=== PATIENT | male | born 1960 | race Caucasian/White ===

== ENCOUNTER 2018-02-05 17:07 | Inpatient (IN) ==
--- NOTE | 2018-02-05 17:56 | Emergency Department Note ---
Disposition Clinical Impression: Drug overdose, Hypercapnic respiratory failure Altered mental status Qualifiers: Altered mental status type: unspecified Qualified Code(s): R41.82 - Altered mental status, unspecified COPD (chronic obstructive pulmonary disease) Qualifiers: COPD type: COPD with acute exacerbation Qualified Code(s): J44.1 - Chronic obstructive pulmonary disease with (acute) exacerbation Sepsis Qualifiers: Sepsis type: sepsis due to unspecified organism Qualified Code(s): A41.9 - Sepsis, unspecified organism Pneumonia Qualifiers: Pneumonia type: due to unspecified organism Laterality: right Lung location: lower lobe of lung Qualified Code(s): J18.1 - Lobar pneumonia, unspecified organism Disposition: Admitted As Inpatient Altered Mental Status HPI - General Chief Complaint: ED Altered Mental Status Stated Complaint: AMS Time Seen by Provider: 02/05/18 17:15 Source: EMS Limitations: altered mental status Nursing Notes Reviewed: Yes Vital Signs Reviewed: Yes - Related Data Home Medications Medication Instructions Recorded Confirmed Albuterol Sulfate [Albuterol 2 puff IH Q4H PRN 05/14/16 05/14/16 Inhaler] Divalproex (24 HR) [Depakote ER 500 mg PO BID 05/14/16 05/14/16 (24 HR)] Ipratropium/Albuterol Neb [Duoneb] 3 ml IH Q4H PRN 05/14/16 05/14/16 Ipratropium/Albuterol Neb [Duoneb] 3 ml IH TID 05/14/16 05/14/16 Melatonin 3 mg PO HS PRN 05/14/16 05/14/16 Omeprazole [PriLOSEC] 20 mg PO DAILY 05/14/16 05/14/16 Oxygen 2 l NS AD 05/14/16 05/14/16 Quetiapine Fumarate [Seroquel] 150 mg PO HS 05/14/16 05/14/16 Tamsulosin [Flomax] 0.4 mg PO HS 05/14/16 05/14/16 Trihexyphenidyl [Artane] 2 mg PO 5XD 05/14/16 05/14/16 fluPHENAZine decanoate [Prolixin] 75 mg IM Q2W 05/14/16 05/14/16 Metoprolol Tartrate [Lopressor] 50 mg PO BID 05/16/16 05/16/16 Previous Rx's Medication Instructions Recorded Fluticasone/Salmeterol [Advair 1 each IH BID #1 blst.w.dev 05/17/16 500-50 Diskus] Nicotine Patch [Nicoderm] 21 mg TD DAILY #30 patch.td24 05/17/16 Umeclidinium [place] [Incruse 62.5 mcg IH DAILY #1 blst.w.dev 05/17/16 Ellipta] Amoxicillin/Clavulanate [Augmentin] 875 mg PO BIDWM #10 tablet 05/19/16 GuaiFENesin ER [Mucinex] 600 mg PO BID tbbp.12hr 05/19/16 HYDROcodone/Acet 5/325 mg [[place] 1 tab PO Q4HR PRN #10 tablet 05/19/16 5-325 mg] predniSONE [Prednisone] 10 mg PO QAM #60 tab.ds.pk 05/19/16 Allergies Allergy/AdvReac Type Severity Reaction Status Date / Time bupropion AdvReac Unknown Verified 05/14/16 15:54 codeine AdvReac Unknown Verified 05/14/16 15:54 gabapentin AdvReac Unknown Verified 05/14/16 15:54 haloperidol [From Haldol] AdvReac Unknown Verified 05/14/16 15:54 morphine AdvReac Unknown Verified 05/14/16 15:54 tramadol AdvReac Unknown Verified 05/14/16 15:54 Varenicline [From Chantix] AdvReac Unknown Verified 05/14/16 15:54 Past Medical History - Past Medical History Medical history: Reports: arthritis, COPD, GERD, hepatitis, hyperlipidemia, hypertension, other Surgical history: Reports: orthopedic, other (Foot surgery. Jaw surgery. Neck surgery.), other Psychiatric history: Reports: anxiety, depression - Social History Smoking Status: Current every day smoker Smokeless Tobacco Status: No Alcohol use: Reports: none Drug use: Reports: none Physical Exam - General Limitations: altered mental status General appearance: appears intoxicated Course Vital Signs Temperature 98.6 F 02/05/18 17:18 Pulse Rate 93 02/05/18 17:18 Respiratory Rate 12 02/05/18 17:18 Blood Pressure 151/95 02/05/18 17:18 O2 Sat by Pulse Oximetry 94 02/05/18 17:18 Temperature 98.6 F 02/05/18 17:18 Pulse Rate 93 02/05/18 21:33 Respiratory Rate 17 02/05/18 21:33 Blood Pressure 169/98 02/05/18 21:33 O2 Sat by Pulse Oximetry 98 02/05/18 21:33 Oxygen Delivery Oxygen Delivery Bipap Altered Mental Status - Lab Data Result diagrams: 02/05/18 17:51 02/05/18 17:51 Lab Results 02/05/18 02/05/18 02/05/18 Range/Units 17:51 17:51 17:51 WBC 17.4 H (4.3-11.1) K/mcL RBC 4.12 L (4.19-5.50) M/mcL Hgb 12.4 L (12.9-16.9) g/dL Hct 40.1 (37.5-50.1) % MCV 97.3 (83.0-100.0) fL MCH 30.1 (28.0-33.3) pg MCHC 30.9 L (31.6-35.5) g/dL RDW 14.7 H (11.5-14.5) % Plt Count 362 (140-400) K/mcL MPV 9.3 L (9.4-12.4) fL Immature Gran % 0.7 (0-4) % Seg Neutrophils % 91.0 % Lymphocytes % 3.8 % Monocytes % 4.0 % Eosinophils % 0.2 % Basophils % 0.3 % Neutrophils # 15.9 H (1.6-8.9) K/mcL Lymphocytes # 0.7 (0.6-4.6) K/mcL Monocytes # 0.7 (0.0-1.3) K/mcL Eosinophils # 0.0 (0.0-0.6) K/mcL Basophils # 0.1 (0.0-0.2) K/mcL PT 10.0 (9.4-12.1) Seconds INR 0.9 APTT 32.5 (26.0-36.0) Seconds VBG pH (7.32-7.42) pH Units VBG pCO2 (41-51) mmHg VBG pO2 (25-50) mmHg VBG HCO3 (21-27) mEq/L Sodium 133 L (136-145) mEq/L Potassium 4.1 (3.5-5.1) mEq/L Chloride 95 L (98-107) mEq/L Carbon Dioxide 34 H (23-29) mEq/L BUN 13 (6-20) mg/dL Creatinine 0.84 (0.70-1.30) mg/dL Est GFR ( Amer) > 60 (> 60) Est GFR (Non-Af Amer) > 60 (> 60) BUN/Creatinine Ratio 15 (6-26) Glucose 146 H (70-105) mg/dL Calculated Osmolality 279 L (280-300) Lactic Acid (0.5-2.2) mmol/L Calcium 8.9 (8.6-10.3) mg/dL Total Bilirubin 0.2 L (0.3-1.0) mg/dL Direct Bilirubin 0.1 (0.0-0.2) mg/dL Indirect Bilirubin 0.1 (0.0-1.2) mg/dL AST 12 L (13-39) Units/L ALT 8 (7-52) Units/L Alkaline Phosphatase 74 (34-104) Units/L Troponin I < 0.03 (< 0.04) ng/mL Serum Total Protein 6.8 (6.4-8.9) g/dL Albumin 4.3 (3.5-5.7) g/dL Globulin 2.5 (2.4-3.5) g/dL Albumin/Globulin Ratio 1.7 (1.1-2.2) Urine Color (Yellow) Urine Clarity (Clear) Urine pH (5.0-8.0) pH Units Ur Specific [place] (1.010-1.025) Urine Protein (Neg-Trace) mg/dL Urine Glucose (UA) (Normal) mg/dL Urine Ketones (Negative) mg/dL Urine Blood (Negative) Urine Nitrite (Negative) Urine Bilirubin (Negative) Urine Urobilinogen (Normal) mg/dL Ur Leukocyte Esterase (Negative) Urine Microscopic RBC (0-3) per hpf Ur Squamous Epith Cells (None-Few) per lpf Ur Culture Indicated? (NO) Salicylates (15.0-30.0) mg/dL Urine Opiates Screen (Mclvjr=691) ng/mL Acetaminophen (10-20) mcg/mL Ur Barbiturates Screen (Frzjay=102) ng/mL Ur Phencyclidine Scrn (Cutoff=25) ng/mL Ur Amphetamines Screen (Wjxwbw=6375) ng/mL U Benzodiazepines Scrn (Hitrsp=797) ng/mL Urine Cocaine Screen (Cutoff= 300) ng/mL U Marijuana (THC) Screen (Cutoff = 50) ng/mL Ur Drug Screen Interp Ethyl Alcohol < 10 (Less than 10) mg/dL Person Notif of Crit 02/05/18 02/05/18 02/05/18 Range/Units 17:51 19:52 19:52 WBC (4.3-11.1) K/mcL RBC (4.19-5.50) M/mcL Hgb (12.9-16.9) g/dL Hct (37.5-50.1) % MCV (83.0-100.0) fL MCH (28.0-33.3) pg MCHC (31.6-35.5) g/dL RDW (11.5-14.5) % Plt Count (140-400) K/mcL MPV (9.4-12.4) fL Immature Gran % (0-4) % Seg Neutrophils % % Lymphocytes % % Monocytes % % Eosinophils % % Basophils % % Neutrophils # (1.6-8.9) K/mcL Lymphocytes # (0.6-4.6) K/mcL Monocytes # (0.0-1.3) K/mcL Eosinophils # (0.0-0.6) K/mcL Basophils # (0.0-0.2) K/mcL PT (9.4-12.1) Seconds INR APTT (26.0-36.0) Seconds VBG pH (7.32-7.42) pH Units VBG pCO2 (41-51) mmHg VBG pO2 (25-50) mmHg VBG HCO3 (21-27) mEq/L Sodium (136-145) mEq/L Potassium (3.5-5.1) mEq/L Chloride (98-107) mEq/L Carbon Dioxide (23-29) mEq/L BUN (6-20) mg/dL Creatinine (0.70-1.30) mg/dL Est GFR ( Amer) (> 60) Est GFR (Non-Af Amer) (> 60) BUN/Creatinine Ratio (6-26) Glucose (70-105) mg/dL Calculated Osmolality (280-300) Lactic Acid (0.5-2.2) mmol/L Calcium (8.6-10.3) mg/dL Total Bilirubin (0.3-1.0) mg/dL Direct Bilirubin (0.0-0.2) mg/dL Indirect Bilirubin (0.0-1.2) mg/dL AST (13-39) Units/L ALT (7-52) Units/L Alkaline Phosphatase (34-104) Units/L Troponin I (< 0.04) ng/mL Serum Total Protein (6.4-8.9) g/dL Albumin (3.5-5.7) g/dL Globulin (2.4-3.5) g/dL Albumin/Globulin Ratio (1.1-2.2) Urine Color Yellow (Yellow) Urine Clarity Clear (Clear) Urine pH 6.0 (5.0-8.0) pH Units Ur Specific [place] 1.015 (1.010-1.025) Urine Protein 30 H (Neg-Trace) mg/dL Urine Glucose (UA) Normal (Normal) mg/dL Urine Ketones Negative (Negative) mg/dL Urine Blood Negative (Negative) Urine Nitrite Negative (Negative) Urine Bilirubin Negative (Negative) Urine Urobilinogen Normal (Normal) mg/dL Ur Leukocyte Esterase Negative (Negative) Urine Microscopic RBC 0-3 (0-3) per hpf Ur Squamous Epith Cells Few (None-Few) per lpf Ur Culture Indicated? NO (NO) Salicylates < 2.5 L (15.0-30.0) mg/dL Urine Opiates Screen Negative (Tfxpgh=996) ng/mL Acetaminophen < 10 L (10-20) mcg/mL Ur Barbiturates Screen Negative (Slunpc=372) ng/mL Ur Phencyclidine Scrn Negative (Cutoff=25) ng/mL Ur Amphetamines Screen Negative (Jvupnj=4144) ng/mL U Benzodiazepines Scrn Negative (Sssrhj=971) ng/mL Urine Cocaine Screen Negative (Cutoff= 300) ng/mL U Marijuana (THC) Screen Negative (Cutoff = 50) ng/mL Ur Drug Screen Interp See Below Ethyl Alcohol (Less than 10) mg/dL Person Notif of Crit 02/05/18 02/05/18 Range/Units 20:04 20:17 WBC (4.3-11.1) K/mcL RBC (4.19-5.50) M/mcL Hgb (12.9-16.9) g/dL Hct (37.5-50.1) % MCV (83.0-100.0) fL MCH (28.0-33.3) pg MCHC (31.6-35.5) g/dL RDW (11.5-14.5) % Plt Count (140-400) K/mcL MPV (9.4-12.4) fL Immature Gran % (0-4) % Seg Neutrophils % % Lymphocytes % % Monocytes % % Eosinophils % % Basophils % % Neutrophils # (1.6-8.9) K/mcL Lymphocytes # (0.6-4.6) K/mcL Monocytes # (0.0-1.3) K/mcL Eosinophils # (0.0-0.6) K/mcL Basophils # (0.0-0.2) K/mcL PT (9.4-12.1) Seconds INR APTT (26.0-36.0) Seconds VBG pH 7.26 L (7.32-7.42) pH Units VBG pCO2 84 H* (41-51) mmHg VBG pO2 57 H (25-50) mmHg VBG HCO3 37 H (21-27) mEq/L Sodium (136-145) mEq/L Potassium (3.5-5.1) mEq/L Chloride (98-107) mEq/L Carbon Dioxide (23-29) mEq/L BUN (6-20) mg/dL Creatinine (0.70-1.30) mg/dL Est GFR ( Amer) (> 60) Est GFR (Non-Af Amer) (> 60) BUN/Creatinine Ratio (6-26) Glucose (70-105) mg/dL Calculated Osmolality (280-300) Lactic Acid 0.8 (0.5-2.2) mmol/L Calcium (8.6-10.3) mg/dL Total Bilirubin (0.3-1.0) mg/dL Direct Bilirubin (0.0-0.2) mg/dL Indirect Bilirubin (0.0-1.2) mg/dL AST (13-39) Units/L ALT (7-52) Units/L Alkaline Phosphatase (34-104) Units/L Troponin I (< 0.04) ng/mL Serum Total Protein (6.4-8.9) g/dL Albumin (3.5-5.7) g/dL Globulin (2.4-3.5) g/dL Albumin/Globulin Ratio (1.1-2.2) Urine Color (Yellow) Urine Clarity (Clear) Urine pH (5.0-8.0) pH Units Ur Specific [place] (1.010-1.025) Urine Protein (Neg-Trace) mg/dL Urine Glucose (UA) (Normal) mg/dL Urine Ketones (Negative) mg/dL Urine Blood (Negative) Urine Nitrite (Negative) Urine Bilirubin (Negative) Urine Urobilinogen (Normal) mg/dL Ur Leukocyte Esterase (Negative) Urine Microscopic RBC (0-3) per hpf Ur Squamous Epith Cells (None-Few) per lpf Ur Culture Indicated? (NO) Salicylates (15.0-30.0) mg/dL Urine Opiates Screen (Wmkyvp=551) ng/mL Acetaminophen (10-20) mcg/mL Ur Barbiturates Screen (Kjprkt=778) ng/mL Ur Phencyclidine Scrn (Cutoff=25) ng/mL Ur Amphetamines Screen (Qcjpih=7399) ng/mL U Benzodiazepines Scrn (Kkmnwi=816) ng/mL Urine Cocaine Screen (Cutoff= 300) ng/mL U Marijuana (THC) Screen (Cutoff = 50) ng/mL Ur Drug Screen Interp Ethyl Alcohol (Less than 10) mg/dL Person Notif of Laz [facility] TPA Checklist - LKW: 3-4.5 hrs Add. Warnings/Precautions Patient/family understanding: The patient/family members have been counseled and understood the risk, benefit , and alternatives of treatment. Attestation Statement - Attestation Attestation: Patient was seen with the resident physician. Independent history and physical exam was taken. I discussed the case with the resident and agree with the findings and plan as documented in the resident's note. Resident physician Dr. Ray. Patient brought in by EMS after the patient been found by mother slumped over in the chair and with decreased responsiveness. Patient aroused EMS verbal stimuli. The patient is talking to us but does have some tangential thoughts and not all of his answers make complete sense. The patient had proximally 30 oxycodone missing. A Tylenol level was sent. Further workup of altered mental status showed hypercapnic respiratory failure. CT was negative for intracranial injury. Patient also has an elevated white count and concern for pneumonia. Patient is a COPD patient on 3 L of home oxygen with no increased oxygen requirement at this time. The patient did have an episode of decreased responsiveness which she did respond to Narcan within the emergency department. We did order cultures as well as a VBG to help further delineate underlying etiology. This time hypercapnia is a factor. Patient was placed on BiPAP. Steroids, breathing treatments, antibiotics given. Patient has been stable in the emergency department and his fine for continued BiPAP on the floor. Patient with occasionally noncoherent thoughts and answers questions Lungs decreased breath sounds bilaterally Heart regular rate and rhythm Abdomen soft nontender to palpation No evidence of trauma No significant pitting edema
[2018-02-05 18:03] LABS: Basophils # 0.1 K/mcL (0.0-0.2); Basophils % 0.3 %; Eosinophils % 0.2 %; Hematocrit 40.1 % (37.5-50.1); Hemoglobin 12.4 g/dL (12.9-16.9); Immature Granulocytes % 0.7 % (0-4); Lymphocytes # 0.7 K/mcL (0.6-4.6); Lymphocytes % 3.8 %; Mean Corpuscular HGB Conc 30.9 g/dL (31.6-35.5); Mean Corpuscular Hemoglobin 30.1 pg (28.0-33.3); Mean Corpuscular Volume 97.3 fL (83.0-100.0); Mean Platelet Volume 9.3 fL (9.4-12.4); Monocytes # 0.7 K/mcL (0.0-1.3); Neutrophils # 15.9 K/mcL (1.6-8.9); Platelet Count 362 K/mcL (140-400); Red Blood Count 4.12 M/mcL (4.19-5.50); Red Cell Distribution Width 14.7 % (11.5-14.5)
[2018-02-05 18:10] LABS: INR 0.9
[2018-02-05 18:12] LABS: Activated Partial Thrombo Time 32.5 Seconds (26.0-36.0)
[2018-02-05 18:21] LABS: Acetaminophen < 10 mcg/mL (10-20); Salicylate < 2.5 mg/dL (15.0-30.0)
[2018-02-05 18:24] LABS: Alanine Aminotransferase 8 Units/L (7-52); Albumin 4.3 g/dL (3.5-5.7); Albumin/Globulin Ratio 1.7 (1.1-2.2); Alkaline Phosphatase 74 Units/L (34-104); Aspartate Amino Transferase 12 Units/L (13-39); BUN/Creatinine Ratio 15 (6-26); Bilirubin,Direct 0.1 mg/dL (0.0-0.2); Bilirubin,Indirect 0.1 mg/dL (0.0-1.2); Bilirubin,Total 0.2 mg/dL (0.3-1.0); Blood Urea Nitrogen 13 mg/dL (6-20); Calcium 8.9 mg/dL (8.6-10.3); Carbon Dioxide 34 mEq/L (23-29); Chloride 95 mEq/L (98-107); Ethanol < 10 mg/dL (Less than 10); Globulin 2.5 g/dL (2.4-3.5); Glucose 146 mg/dL (70-105); Osmolality,Calculated 279 (280-300); Potassium 4.1 mEq/L (3.5-5.1); Sodium 133 mEq/L (136-145); Total Protein 6.8 g/dL (6.4-8.9); Troponin I < 0.03 ng/mL (< 0.04); eGFR For Non-African Americans > 60 (> 60)
--- NOTE | 2018-02-05 18:46 | Emergency Department Note ---
Disposition Clinical Impression: Drug overdose, Hypercapnic respiratory failure Altered mental status Qualifiers: Altered mental status type: unspecified Qualified Code(s): R41.82 - Altered mental status, unspecified COPD (chronic obstructive pulmonary disease) Qualifiers: COPD type: emphysema Emphysema type: unspecified Qualified Code(s): J43.9 - Emphysema, unspecified Sepsis Qualifiers: Sepsis type: sepsis due to unspecified organism Qualified Code(s): A41.9 - Sepsis, unspecified organism Pneumonia Qualifiers: Pneumonia type: due to unspecified organism Laterality: right Lung location: lower lobe of lung Qualified Code(s): J18.1 - Lobar pneumonia, unspecified organism Disposition: Admitted As Inpatient General Adult HPI - General Chief complaint: ED Altered Mental Status Stated complaint: AMS Time Seen by Provider: 02/05/18 17:15 Source: EMS Mode of arrival: EMS Limitations: altered mental status Nursing Notes Reviewed: Yes Vital Signs Reviewed: Yes - History of Present Illness HPI Narrative: Patient is a 57-year-old male with past medical history of hypertension, COPD on 3L O2 per NC at home, chronic pain on oxycodone, shortness of breath started this presenting via EMS due to altered mental status. Report given by EMS. The patient's mom called EMS as she found the patient slumped over and unresponsive in his chair. She was unable to wake him up. When EMS arrived patient was able to be arousable. No Narcan was given. It was noted that there is a oxycodone pill bottle next to the chair. It was noted that the patient had approximately 6-12 pills still left. The prescription was filled on 02/02/2018. He had 56 pills in there. It is estimated he took approximately 30 pills in 3 days. He states today he followed the prescription and took 2 pills. He states he did not overdose and did not intentionally harm himself. He is an unreliable historian as unable to tell us why they are pills missing from the bottle. Recent is currently alert and satting 94% on 3 L of oxygen per nasal cannula. He denies chest pain, shortness of breath, dysuria, cough, headaches. He states he did not fall or hit his head. Pain Scale: 0 - Related Data Home Medications Medication Instructions Recorded Confirmed Albuterol Sulfate [Albuterol 2 puff IH Q4H PRN 05/14/16 05/14/16 Inhaler] Divalproex (24 HR) [Depakote ER 500 mg PO BID 05/14/16 05/14/16 (24 HR)] Ipratropium/Albuterol Neb [Duoneb] 3 ml IH Q4H PRN 05/14/16 05/14/16 Ipratropium/Albuterol Neb [Duoneb] 3 ml IH TID 05/14/16 05/14/16 Melatonin 3 mg PO HS PRN 05/14/16 05/14/16 Omeprazole [PriLOSEC] 20 mg PO DAILY 05/14/16 05/14/16 Oxygen 2 l NS AD 05/14/16 05/14/16 Quetiapine Fumarate [Seroquel] 150 mg PO HS 05/14/16 05/14/16 Tamsulosin [Flomax] 0.4 mg PO HS 05/14/16 05/14/16 Trihexyphenidyl [Artane] 2 mg PO 5XD 05/14/16 05/14/16 fluPHENAZine decanoate [Prolixin] 75 mg IM Q2W 05/14/16 05/14/16 Metoprolol Tartrate [Lopressor] 50 mg PO BID 05/16/16 05/16/16 Previous Rx's Medication Instructions Recorded Fluticasone/Salmeterol [Advair 1 each IH BID #1 blst.w.dev 05/17/16 500-50 Diskus] Nicotine Patch [Nicoderm] 21 mg TD DAILY #30 patch.td24 05/17/16 Umeclidinium [place] [Incruse 62.5 mcg IH DAILY #1 blst.w.dev 05/17/16 Ellipta] Amoxicillin/Clavulanate [Augmentin] 875 mg PO BIDWM #10 tablet 05/19/16 GuaiFENesin ER [Mucinex] 600 mg PO BID tbbp.12hr 05/19/16 HYDROcodone/Acet 5/325 mg [[place] 1 tab PO Q4HR PRN #10 tablet 05/19/16 5-325 mg] predniSONE [Prednisone] 10 mg PO QAM #60 tab.ds.pk 05/19/16 Allergies Allergy/AdvReac Type Severity Reaction Status Date / Time bupropion AdvReac Unknown Verified 05/14/16 15:54 codeine AdvReac Unknown Verified 05/14/16 15:54 gabapentin AdvReac Unknown Verified 05/14/16 15:54 haloperidol [From Haldol] AdvReac Unknown Verified 05/14/16 15:54 morphine AdvReac Unknown Verified 05/14/16 15:54 tramadol AdvReac Unknown Verified 05/14/16 15:54 Varenicline [From Chantix] AdvReac Unknown Verified 05/14/16 15:54 All systems ED: reviewed and negative except as stated. Review of Systems: As Per HPI Constitutional: Denies: fever, chills Eyes: Denies: vision change ENT ED: Denies: throat pain, congestion Cardiovascular: Denies: chest pain, palpitations Respiratory: Denies: cough, dyspnea Gastrointestinal: Denies: abdominal pain, nausea Genitourinary: Denies: dysuria, hematuria Musculoskeletal: Reports: neck pain. Denies: back pain Integumentary: Denies: rash Neurological: Reports: confusion Allergic/Immunologic: Denies: itchy eyes Past Medical History - Past Medical History Attestation: Yes The following information was validated with the patient. Source: patient Medical history: Reports: arthritis, COPD, GERD, hepatitis, hyperlipidemia, hypertension, other Surgical history: Reports: orthopedic, other (Foot surgery. Jaw surgery. Neck surgery.), other Psychiatric history: Reports: anxiety, depression - Social History Smoking Status: Current every day smoker Smokeless Tobacco Status: No Alcohol use: Reports: none Drug use: Reports: none Physical Exam - General Limitations: altered mental status General appearance: appears intoxicated - Head Head exam: atraumatic, normocephalic - Eye Eye exam: Present: PERRL, EOMI. Absent: scleral icterus - Neck Neck exam: Present: trachea midline. Absent: tenderness - Respiratory Respiratory exam: Present: other (Diminished breath sounds bilaterally but no wheezing or crackles noted.). Absent: respiratory distress, accessory muscle use - Cardiovascular Cardiovascular exam: Present: normal rhythm, tachycardia - Abdominal Exam Abdominal exam: Present: soft, Non-Tender. Absent: distention, guarding - Extremities Exam Extremities exam: Present: full ROM. Absent: tenderness - Neurological Exam Neurological exam: Present: other - Expanded Neurological Exam Patient oriented to: Present: person, place, time Cranial nerves: EOM function (II, III, IV, ): Normal, facial sensation (V): Normal, facial palsy (VII): Normal, spinal accessory function (XI): Normal, tongue deviation (XII): Normal Cerebellar function: finger to nose: Normal, heel to gilbert: Normal Motor strength - LUE: 5/5 Motor strength - RUE: 5/5 Motor strength - LLE: 5/5 Motor strength - RLE: 5/5 Upper motor neuron exam: iman neglect: Absent bilaterally, pronator drift: Absent bilaterally Sensory exam upper extremity: light touch: Normal Sensory exam lower extremity: light touch: Normal - Psychiatric Psychiatric exam: Absent: depressed, homicidal ideation, suicidal ideation - Skin Skin exam: Present: warm, dry. Absent: diaphoresis, pallor Course Vital Signs Temperature 98.6 F 02/05/18 17:18 Pulse Rate 93 02/05/18 17:18 Respiratory Rate 12 02/05/18 17:18 Blood Pressure 151/95 02/05/18 17:18 O2 Sat by Pulse Oximetry 94 02/05/18 17:18 Temperature 98.6 F 02/05/18 17:18 Pulse Rate 93 02/05/18 21:33 Respiratory Rate 17 02/05/18 21:33 Blood Pressure 169/98 02/05/18 21:33 O2 Sat by Pulse Oximetry 98 02/05/18 21:33 Oxygen Delivery Oxygen Delivery Bipap Medical Decision Making - [facility] Narrative Medical decision making narrative: Patient is arousable and able to respond to questions. No gross neurologic deficits on exam. We will obtain altered mental status workup. We will obtain CT head and neck. Check chest x-ray, urinalysis, troponin, EKG, CBC, CMP, PT/ INR, we will also obtain acetaminophen, salicylate, ethanol levels. Concern for significant acetaminophen toxicity if he took a significant amount of oxycodone. Unsure if there is acetaminophen in his prescription. 19:20 Labs reviewed. Patient has leukocytosis with white blood count 17,000. Acetaminophen level, salicylate level, ethanol level is not elevated. Troponin is <0.03. CT head without acute intracranial process. Chest x-ray does show an opacity in the right lower lobe suspicious for pneumonia versus atelectasis. We will treat as pneumonia. He has not had a recent hospitalization. We will give him ceftriaxone and azithromycin. The patient's nurse called me around 19:30. He has been having increased oxygen requirement. His oxygen saturations were decreasing into the 70s and he was placed on a nonrebreather personally half an hour ago. His oxygen saturations improved. He was very sleepy and difficult to arouse. Gave 0.4 mg of Narcan. The patient then responded and is now awake. DuoNeb treatment was ordered and the patient is currently receiving this. Blood cultures, lactate, IV fluids also ordered. This will be obtained prior to starting the IV antibiotics to treat for pneumonia. History of COPD and we will give methylprednisolone as well. Patient will need to be admitted for altered mental status secondary to possible drug overdose versus pneumonia. He will also need further treatment of his pneumonia and COPD exacerbation. Urine drug screen and urinalysis also sent at this time. 20:25 Notified that PCO2 is83.6 called respiratory to start the patient on BiPAP. If patient cannot tolerate Bipap, will consider intubating the patient. Discussed with him the importance of wearing his mask. Discussed with hospitalist, Dr. Bella at 20:50. He will accept the patient. Will also update tabulating machine mechanic about the patient as there are no orth beds and will have to get the patient an inpatient bed. It will be unknown how long the patient will remain down in the ED. Patient is tolerating Bipap upon re- evaluation and arrousable and responds appropriately to questions. - Medical Records Medical records reviewed: Yes I reviewed the patient's medical records. - Lab Data Lab results reviewed: Yes I reviewed the patient's lab results. Result diagrams: 02/05/18 17:51 02/05/18 17:51 Lab Results 02/05/18 02/05/18 02/05/18 Range/Units 17:51 17:51 17:51 WBC 17.4 H (4.3-11.1) K/mcL RBC 4.12 L (4.19-5.50) M/mcL Hgb 12.4 L (12.9-16.9) g/dL Hct 40.1 (37.5-50.1) % MCV 97.3 (83.0-100.0) fL MCH 30.1 (28.0-33.3) pg MCHC 30.9 L (31.6-35.5) g/dL RDW 14.7 H (11.5-14.5) % Plt Count 362 (140-400) K/mcL MPV 9.3 L (9.4-12.4) fL Immature Gran % 0.7 (0-4) % Seg Neutrophils % 91.0 % Lymphocytes % 3.8 % Monocytes % 4.0 % Eosinophils % 0.2 % Basophils % 0.3 % Neutrophils # 15.9 H (1.6-8.9) K/mcL Lymphocytes # 0.7 (0.6-4.6) K/mcL Monocytes # 0.7 (0.0-1.3) K/mcL Eosinophils # 0.0 (0.0-0.6) K/mcL Basophils # 0.1 (0.0-0.2) K/mcL PT 10.0 (9.4-12.1) Seconds INR 0.9 APTT 32.5 (26.0-36.0) Seconds VBG pH (7.32-7.42) pH Units VBG pCO2 (41-51) mmHg VBG pO2 (25-50) mmHg VBG HCO3 (21-27) mEq/L Sodium 133 L (136-145) mEq/L Potassium 4.1 (3.5-5.1) mEq/L Chloride 95 L (98-107) mEq/L Carbon Dioxide 34 H (23-29) mEq/L BUN 13 (6-20) mg/dL Creatinine 0.84 (0.70-1.30) mg/dL Est GFR ( Amer) > 60 (> 60) Est GFR (Non-Af Amer) > 60 (> 60) BUN/Creatinine Ratio 15 (6-26) Glucose 146 H (70-105) mg/dL Calculated Osmolality 279 L (280-300) Lactic Acid (0.5-2.2) mmol/L Calcium 8.9 (8.6-10.3) mg/dL Total Bilirubin 0.2 L (0.3-1.0) mg/dL Direct Bilirubin 0.1 (0.0-0.2) mg/dL Indirect Bilirubin 0.1 (0.0-1.2) mg/dL AST 12 L (13-39) Units/L ALT 8 (7-52) Units/L Alkaline Phosphatase 74 (34-104) Units/L Troponin I < 0.03 (< 0.04) ng/mL Serum Total Protein 6.8 (6.4-8.9) g/dL Albumin 4.3 (3.5-5.7) g/dL Globulin 2.5 (2.4-3.5) g/dL Albumin/Globulin Ratio 1.7 (1.1-2.2) Urine Color (Yellow) Urine Clarity (Clear) Urine pH (5.0-8.0) pH Units Ur Specific [place] (1.010-1.025) Urine Protein (Neg-Trace) mg/dL Urine Glucose (UA) (Normal) mg/dL Urine Ketones (Negative) mg/dL Urine Blood (Negative) Urine Nitrite (Negative) Urine Bilirubin (Negative) Urine Urobilinogen (Normal) mg/dL Ur Leukocyte Esterase (Negative) Urine Microscopic RBC (0-3) per hpf Ur Squamous Epith Cells (None-Few) per lpf Ur Culture Indicated? (NO) Salicylates (15.0-30.0) mg/dL Urine Opiates Screen (Weeelr=312) ng/mL Acetaminophen (10-20) mcg/mL Ur Barbiturates Screen (Bpiukt=452) ng/mL Ur Phencyclidine Scrn (Cutoff=25) ng/mL Ur Amphetamines Screen (Oubtin=8997) ng/mL U Benzodiazepines Scrn (Ldcqzg=929) ng/mL Urine Cocaine Screen (Cutoff= 300) ng/mL U Marijuana (THC) Screen (Cutoff = 50) ng/mL Ur Drug Screen Interp Ethyl Alcohol < 10 (Less than 10) mg/dL Person Notif of Crit 02/05/18 02/05/18 02/05/18 Range/Units 17:51 19:52 19:52 WBC (4.3-11.1) K/mcL RBC (4.19-5.50) M/mcL Hgb (12.9-16.9) g/dL Hct (37.5-50.1) % MCV (83.0-100.0) fL MCH (28.0-33.3) pg MCHC (31.6-35.5) g/dL RDW (11.5-14.5) % Plt Count (140-400) K/mcL MPV (9.4-12.4) fL Immature Gran % (0-4) % Seg Neutrophils % % Lymphocytes % % Monocytes % % Eosinophils % % Basophils % % Neutrophils # (1.6-8.9) K/mcL Lymphocytes # (0.6-4.6) K/mcL Monocytes # (0.0-1.3) K/mcL Eosinophils # (0.0-0.6) K/mcL Basophils # (0.0-0.2) K/mcL PT (9.4-12.1) Seconds INR APTT (26.0-36.0) Seconds VBG pH (7.32-7.42) pH Units VBG pCO2 (41-51) mmHg VBG pO2 (25-50) mmHg VBG HCO3 (21-27) mEq/L Sodium (136-145) mEq/L Potassium (3.5-5.1) mEq/L Chloride (98-107) mEq/L Carbon Dioxide (23-29) mEq/L BUN (6-20) mg/dL Creatinine (0.70-1.30) mg/dL Est GFR ( Amer) (> 60) Est GFR (Non-Af Amer) (> 60) BUN/Creatinine Ratio (6-26) Glucose (70-105) mg/dL Calculated Osmolality (280-300) Lactic Acid (0.5-2.2) mmol/L Calcium (8.6-10.3) mg/dL Total Bilirubin (0.3-1.0) mg/dL Direct Bilirubin (0.0-0.2) mg/dL Indirect Bilirubin (0.0-1.2) mg/dL AST (13-39) Units/L ALT (7-52) Units/L Alkaline Phosphatase (34-104) Units/L Troponin I (< 0.04) ng/mL Serum Total Protein (6.4-8.9) g/dL Albumin (3.5-5.7) g/dL Globulin (2.4-3.5) g/dL Albumin/Globulin Ratio (1.1-2.2) Urine Color Yellow (Yellow) Urine Clarity Clear (Clear) Urine pH 6.0 (5.0-8.0) pH Units Ur Specific [place] 1.015 (1.010-1.025) Urine Protein 30 H (Neg-Trace) mg/dL Urine Glucose (UA) Normal (Normal) mg/dL Urine Ketones Negative (Negative) mg/dL Urine Blood Negative (Negative) Urine Nitrite Negative (Negative) Urine Bilirubin Negative (Negative) Urine Urobilinogen Normal (Normal) mg/dL Ur Leukocyte Esterase Negative (Negative) Urine Microscopic RBC 0-3 (0-3) per hpf Ur Squamous Epith Cells Few (None-Few) per lpf Ur Culture Indicated? NO (NO) Salicylates < 2.5 L (15.0-30.0) mg/dL Urine Opiates Screen Negative (Vgskzh=138) ng/mL Acetaminophen < 10 L (10-20) mcg/mL Ur Barbiturates Screen Negative (Ivnxbo=591) ng/mL Ur Phencyclidine Scrn Negative (Cutoff=25) ng/mL Ur Amphetamines Screen Negative (Yhkyvl=1887) ng/mL U Benzodiazepines Scrn Negative (Kcgfyy=870) ng/mL Urine Cocaine Screen Negative (Cutoff= 300) ng/mL U Marijuana (THC) Screen Negative (Cutoff = 50) ng/mL Ur Drug Screen Interp See Below Ethyl Alcohol (Less than 10) mg/dL Person Notif of Crit 02/05/18 02/05/18 Range/Units 20:04 20:17 WBC (4.3-11.1) K/mcL RBC (4.19-5.50) M/mcL Hgb (12.9-16.9) g/dL Hct (37.5-50.1) % MCV (83.0-100.0) fL MCH (28.0-33.3) pg MCHC (31.6-35.5) g/dL RDW (11.5-14.5) % Plt Count (140-400) K/mcL MPV (9.4-12.4) fL Immature Gran % (0-4) % Seg Neutrophils % % Lymphocytes % % Monocytes % % Eosinophils % % Basophils % % Neutrophils # (1.6-8.9) K/mcL Lymphocytes # (0.6-4.6) K/mcL Monocytes # (0.0-1.3) K/mcL Eosinophils # (0.0-0.6) K/mcL Basophils # (0.0-0.2) K/mcL PT (9.4-12.1) Seconds INR APTT (26.0-36.0) Seconds VBG pH 7.26 L (7.32-7.42) pH Units VBG pCO2 84 H* (41-51) mmHg VBG pO2 57 H (25-50) mmHg VBG HCO3 37 H (21-27) mEq/L Sodium (136-145) mEq/L Potassium (3.5-5.1) mEq/L Chloride (98-107) mEq/L Carbon Dioxide (23-29) mEq/L BUN (6-20) mg/dL Creatinine (0.70-1.30) mg/dL Est GFR ( Amer) (> 60) Est GFR (Non-Af Amer) (> 60) BUN/Creatinine Ratio (6-26) Glucose (70-105) mg/dL Calculated Osmolality (280-300) Lactic Acid 0.8 (0.5-2.2) mmol/L Calcium (8.6-10.3) mg/dL Total Bilirubin (0.3-1.0) mg/dL Direct Bilirubin (0.0-0.2) mg/dL Indirect Bilirubin (0.0-1.2) mg/dL AST (13-39) Units/L ALT (7-52) Units/L Alkaline Phosphatase (34-104) Units/L Troponin I (< 0.04) ng/mL Serum Total Protein (6.4-8.9) g/dL Albumin (3.5-5.7) g/dL Globulin (2.4-3.5) g/dL Albumin/Globulin Ratio (1.1-2.2) Urine Color (Yellow) Urine Clarity (Clear) Urine pH (5.0-8.0) pH Units Ur Specific [place] (1.010-1.025) Urine Protein (Neg-Trace) mg/dL Urine Glucose (UA) (Normal) mg/dL Urine Ketones (Negative) mg/dL Urine Blood (Negative) Urine Nitrite (Negative) Urine Bilirubin (Negative) Urine Urobilinogen (Normal) mg/dL Ur Leukocyte Esterase (Negative) Urine Microscopic RBC (0-3) per hpf Ur Squamous Epith Cells (None-Few) per lpf Ur Culture Indicated? (NO) Salicylates (15.0-30.0) mg/dL Urine Opiates Screen (Vsqvci=350) ng/mL Acetaminophen (10-20) mcg/mL Ur Barbiturates Screen (Cvgeli=038) ng/mL Ur Phencyclidine Scrn (Cutoff=25) ng/mL Ur Amphetamines Screen (Ahsrme=7127) ng/mL U Benzodiazepines Scrn (Nkwxog=476) ng/mL Urine Cocaine Screen (Cutoff= 300) ng/mL U Marijuana (THC) Screen (Cutoff = 50) ng/mL Ur Drug Screen Interp Ethyl Alcohol (Less than 10) mg/dL Person Notif of [facility] - Radiology Data Radiology results reviewed: Yes I reviewed the patient's radiology results. Chest X-Ray 02/05/18 17:34 IMPRESSION: Right lower lobe opacity may represent atelectasis versus pneumonia. D/ / 02/05/2018 18:29:30 Dragan Duggan MD / [email or web address] Interpreting Provider: Dragan Duggan MD
[2018-02-05] MEDS ORDERED: Azithromycin 500 MG in D5% in Water 250 ML IVPB ONE (19:23)
[2018-02-05] MEDS ORDERED: cefTRIAXone 1,000 MG in Water for inj. (sterile) 20 ML 10 ML IVP ONE (19:23)
[2018-02-05] MEDS ORDERED: Naloxone 0.4 MG/ML INJ IVP ONE ×2 (19:25→21:37)
[2018-02-05] MEDS ORDERED: Ipratropium/Albuterol Neb 3 ML IH ONE (19:26)
[2018-02-05] MEDS ORDERED: methylPREDNISolone 125 MG/2 ML VIAL IVP ONE (19:27)
[2018-02-05] MEDS ORDERED: 0.9 % Sodium Chloride 1,000 ML IVC ONE (19:43)
[2018-02-05 20:17] LABS: Bilirubin,Urine Negative (Negative); Blood,Urine Negative (Negative); Clarity,Urine Clear (Clear); Color,Urine Yellow (Yellow); Glucose,Urine (UA) Normal (Normal); Ketones,Urine Negative (Negative); Leukocyte Esterase,Urine Negative (Negative); Nitrite,Urine Negative (Negative); Protein,Urine 30 mg/dL (Neg-Trace); Specific Gravity,Urine 1.015 (1.010-1.025); Urobilinogen,Urine Normal (Normal)
[2018-02-05 20:22] LABS: VBG HCO3 37 mEq/L (21-27); VBG PCO2 84 mmHg (41-51); VBG PH 7.26 pH Units (7.32-7.42); VBG PO2 57 mmHg (25-50)
[2018-02-05 20:26] LABS: RBC,Urine 0-3 per hpf (0-3); Squamous Epithelial Cell,Urine Few per lpf (None-Few)
[2018-02-05 20:28] LABS: Amphetamine Screen,Urine Negative ng/mL (Cutoff=1000); Barbiturate Screen,Urine Negative ng/mL (Cutoff=200); Benzodiazepines Screen,Urine Negative ng/mL (Cutoff=200); Cannabinoid Screen,Urine Negative ng/mL (Cutoff = 50); Cocaine Screen,Urine Negative ng/mL (Cutoff= 300); Opiate Screen,Urine Negative ng/mL (Cutoff=300); Phencyclidine Screen,Urine Negative ng/mL (Cutoff=25)
[2018-02-05] MEDS ORDERED: Naloxone 0.4 MG/ML INJ IVP PRN (21:39)
--- NOTE | 2018-02-05 21:52 | Internal Med History&Physical ---
<Drake Pathak - Last Filed: 02/05/18 21:47> Date of Encounter: 02/05/18 Time of Encounter: 21:47 Internal Medicine - H&P: HPI Chief complaint: Altered mental status Admitted From: Home Plans for Post Hospital Care: Home History of present illness: Mr. Curran is a 57 year old male presents after being found unconscious by his mother. I personally contacted the patient's mother. She reports that this morning he was slow but difficult to arouse but woke up and went outside to smoke a cigarette. After that he went back into [facility] in the afternoon she found him unconscious and difficult to arouse with slow respirations. After that she call 911. EMS reported that patient takes oxycodone and his pill bottle only had 15 pills. Patient mother reports that he had a prescription filled on 02/04/2018 and had a total of 56 pills and she only counted 16 pills. Patient has a history of bipolar disorder and paranoid schizophrenia and is followed by [place] psychiatry. He is on fluphenazine. Unclear when his last dose was given. Upon arrival patient was found to be in acute respiratory failure with hypercapnia and hypoxia. He was placed on BiPAP and given Narcan which she responded to. During my examination patient denied intention to harm self, previous suicide attempts. He denies recent hallucinations, poor sleep. Patient 's mother also stated he has never attempted suicide. She also reported the patient is not depressed or did not have any suicidal ideations. Past Med Surg Social Fam HX - Past Medical History Medical history: arthritis, COPD, GERD, hepatitis, hyperlipidemia, hypertension , other Additional medical history: chronic back & neck pain. Hep C Psychiatric history: anxiety, depression - Past Surgical History Surgical History: orthopedic, other (Foot surgery. Jaw surgery. Neck surgery.) , other Additional surgical history: feet. neck. jaw. back - Social History Smoking Status: Current every day smoker Smokeless Tobacco Status: No Alcohol use: none Drug use: none Internal Medicine - H&P: Meds Albuterol Sulfate [Albuterol Inhaler] 2 puff IH Q4H PRN 05/14/16 [History] Divalproex (24 HR) [Depakote ER (24 HR)] 500 mg PO BID 05/14/16 [History] Ipratropium/Albuterol Neb [Duoneb] 3 ml IH Q4H PRN 05/14/16 [History] Ipratropium/Albuterol Neb [Duoneb] 3 ml IH TID 05/14/16 [History] Melatonin 3 mg PO HS PRN 05/14/16 [History] Omeprazole [PriLOSEC] 20 mg PO DAILY 05/14/16 [History] Oxygen 2 l NS AD 05/14/16 [History] Quetiapine Fumarate [Seroquel] 150 mg PO HS 05/14/16 [History] Tamsulosin [Flomax] 0.4 mg PO HS 05/14/16 [History] Trihexyphenidyl [Artane] 2 mg PO 5XD 05/14/16 [History] fluPHENAZine decanoate [Prolixin] 75 mg IM Q2W 05/14/16 [History] Metoprolol Tartrate [Lopressor] 50 mg PO BID 05/16/16 [History] Fluticasone/Salmeterol [Advair 500-50 Diskus] 1 each IH BID #1 blst.w.dev [Rx] Nicotine Patch [Nicoderm] 21 mg TD DAILY #30 patch.td24 05/17/16 [Rx] Umeclidinium [place] [Incruse Ellipta] 62.5 mcg IH DAILY #1 blst.w.dev 05/17/16 [Rx] Amoxicillin/Clavulanate [Augmentin] 875 mg PO BIDWM #10 tablet 05/19/16 [Rx] GuaiFENesin ER [Mucinex] 600 mg PO BID tbbp.12hr 05/19/16 [Rx] HYDROcodone/Acet 5/325 mg [[place] 5-325 mg] 1 tab PO Q4HR PRN #10 tablet [Rx] predniSONE [Prednisone] 10 mg PO QAM #60 tab.ds.pk 05/19/16 [Rx] 3 Allergy/AdvReac Type Severity Reaction Status Date / Time bupropion AdvReac Unknown Verified 05/14/16 15:54 codeine AdvReac Unknown Verified 05/14/16 15:54 gabapentin AdvReac Unknown Verified 05/14/16 15:54 haloperidol [From Haldol] AdvReac Unknown Verified 05/14/16 15:54 morphine AdvReac Unknown Verified 05/14/16 15:54 tramadol AdvReac Unknown Verified 05/14/16 15:54 Varenicline [From Chantix] AdvReac Unknown Verified 05/14/16 15:54 All Systems PM: A 10-system review of systems was performed and is negative for pertinent findings except as documented above in the HPI. Review of systems: Constitutional: Denies fever, chills HEENT: Denies headache, trauma, blurry vision, eye discharge, ear pain, ear discharge neck pain, sore throat, rhinorrhea Heart: Denies chest pain palpitations, LE edema Lungs: Poor shortness of breath, denies cough, sputum production Abdomen: Denies abdominal pain nausea vomiting diarrhea MSK: Denies back pain, falls, joint pain Kidney: Denies dysuria, hematuria Skin: Denies rash, ulcers Neuro: Denies numbness and tingling Psych: reports axiety and depression - Constitutional Vitals: Temp Pulse Resp BP Pulse Ox 98.6 F 93 17 169/98 98 02/05/18 17:18 02/05/18 21:33 02/05/18 21:33 02/05/18 21:33 02/05/18 21:33 Exam: General: pleasant, without distress, somnolent HEENT: Head atraumatic, normocephalic, EOMI, PERRL, absent ear discharge or trauma, on BIPAP Neck: nontender to palpation, absent lymphadenopathy, Cardiovascualr: Regular rate and rhythm with no murmur, absent gallops or rubs, 1+ pedal edema, radial pulses 2 out of 4 Lungs: Clear to auscultation bilaterally, not in respiratory distress Abdomen: Soft nontender, nondistended positive bowel sounds, absent hepatomegaly Skin: warm and dry, absent rash, absent open wounds and nodules MSK: absent clubbing, cyanosis, joints without swelling Neuro: alert and oriented to self and place Psych: poor insight and judgement, calm Internal Med - H&P Results - Labs CBC & Chem 7: 02/05/18 17:51 02/05/18 17:51 - Assessment and plan (1) Opiate overdose Current Visit: Yes Status: Acute Assessment and plan: patient was found unresponsive with only 15 out of 56 pills left of his oxycodone prescription Patient denies suicidal ideation, suicidal attempt He has a history of schizophrenia and bipolar disorder He reports compliance with his medications Unclear intent of overdose Patient responded to Narcan in the emergency department Patient is still somnolent Plan: Narcan 1, psychiatry consultation, obtain records from [place] psych,pink slip , one on one sitter. Qualifiers: Encounter type: initial encounter Injury intent: undetermined intent Qualified Code(s): T40.604A - Poisoning by unspecified narcotics, undetermined, initial encounter (2) Acute on chronic respiratory failure with hypoxia and hypercapnia Current Visit: Yes Status: Acute Assessment and plan: 2nd to opiate overdose VBG pCo2 is 84 patient is on 3L O2 at home for COPD in ER he desatted to 70s and was difficult to arouse and responded to narcan also RLL opacity on CXR-suspect aspiration pna plan: unasyn, duonebs and bipap (3) Aspiration pneumonia Current Visit: Yes Status: Acute Assessment and plan: 2nd to drug overdose plan as above. Qualifiers: Aspiration pneumonia type: due to gastric secretions Laterality: right Lung location: lower lobe of lung Qualified Code(s): J69.0 - Pneumonitis due to inhalation of food and vomit (4) Chronic back pain Current Visit: Yes Status: Acute Assessment and plan: hx of chronic low back pain on chronic opiods patient should not be discharged with opioids on admission and should have all opioids removed from home. Qualifiers: Back pain location: low back pain Back pain laterality: unspecified Sciatica presence: unspecified whether sciatica present Qualified Code(s): M54.5 - Low back pain; G89.29 - Other chronic pain (5) Hx of schizophrenia Current Visit: Yes Status: Acute Assessment and plan: patient followed by [place] psych denies SI/HI, hallucinations on fluphenazine. unclear when his last dose was obtain [place] records. Would recommend contacting [place] psych for further information of his psych history (6) COPD (chronic obstructive pulmonary disease) Current Visit: Yes Status: Chronic Assessment and plan: hx of COPD not in exacerbation continue nebulizer and oxygen supplementation Qualifiers: COPD type: emphysema Emphysema type: unspecified Qualified Code(s): J43.9 - Emphysema, unspecified (7) Hx of bipolar disorder Current Visit: Yes Status: Acute - Time Spent With Patient Total time spent is greater than 50% in coordination of care (as documented) at patient's floor/unit and/or counseling patient: <Nemesio Bella - Last Filed: 02/05/18 22:14> Date of Encounter: 02/05/18 Internal Medicine - H&P: HPI History of present illness: Mr. Curran is a 57 year old male All Systems PM: A 10-system review of systems was performed and is negative for pertinent findings except as documented above in the HPI. - Constitutional Vitals: Temp Pulse Resp BP Pulse Ox 98.6 F 93 17 169/98 98 02/05/18 17:18 02/05/18 21:33 02/05/18 21:33 02/05/18 21:33 02/05/18 21:33 Internal Med - H&P Results - Labs CBC & Chem 7: 02/05/18 17:51 02/05/18 17:51 - Assessment and plan (1) Acute on chronic respiratory failure with hypoxia and hypercapnia Current Visit: Yes Status: Acute (2) COPD (chronic obstructive pulmonary disease) Current Visit: Yes Status: Chronic Qualifiers: COPD type: emphysema Emphysema type: unspecified Qualified Code(s): J43.9 - Emphysema, unspecified (3) Aspiration pneumonia Current Visit: Yes Status: Acute Qualifiers: Aspiration pneumonia type: due to gastric secretions Laterality: right Lung location: lower lobe of lung Qualified Code(s): J69.0 - Pneumonitis due to inhalation of food and vomit (4) Opiate overdose Current Visit: Yes Status: Acute Qualifiers: Encounter type: initial encounter Injury intent: undetermined intent Qualified Code(s): T40.604A - Poisoning by unspecified narcotics, undetermined, initial encounter (5) Chronic back pain Current Visit: Yes Status: Acute Qualifiers: Back pain location: low back pain Back pain laterality: unspecified Sciatica presence: unspecified whether sciatica present Qualified Code(s): M54.5 - Low back pain; G89.29 - Other chronic pain (6) Hx of schizophrenia Current Visit: Yes Status: Acute (7) Hx of bipolar disorder Current Visit: Yes Status: Acute - Time Spent With Patient Total time spent is greater than 50% in coordination of care (as documented) at patient's floor/unit and/or counseling patient: - Attending Attestation 57 year old man with a history of schizophrenia and bipolar disorder who was found obtunded in his home by his mother with multiple tablets missing from his recent prescribed narcotic bottle. Here he was seen to have CO2 retention with acidosis on VBG. He awakened with a dose of naloxone and was placed on Bipap. Unable to obtain significant information from him as he was not conversant but would nod appropriately to questioning. Physical exam remarkable for reduced breath sounds in both lung meredith, distended but soft and non-tender abdomen as well as pitting edema in both legs. CXR reviewed independently by me shows a mild heteregenous infiltrate in the RLL. Will admit for acute hypercarbic respiratory failure with respiratory acidosis secondary to suspected opiate overdose; suspect intentional and therefore will pink-slip him and obtain psych consult. Naloxone prn. Nebulizer therapy. Short course of amp/sulbactam can be given for possible aspiration pneumonia. Leukocytosis seen to be a chronic finding; etiology unclear. Remain on Bipap overnight and obtain ABG in the morning. DVT prophylaxis ordered.
[2018-02-05] MEDS: *HR* Heparin 5,000 UNIT/ML VIAL SQ SCH (23:00)
[2018-02-05] MEDS: Ampicillin/Sulbactam 1,500 MG in 0.9 % Sodium Chloride Mini Bag 100 ML IVPB SCH (23:02)
[2018-02-05] MEDS: Ipratropium/Albuterol Neb 3 ML IH SCH (23:10)
[2018-02-06] MEDS: Ipratropium/Albuterol Neb 3 ML IH SCH ×6 (03:36→23:44)
[2018-02-06 04:02] LABS: ABG Base Excess 7 mEq/L (-2 to 3); ABG HCO3 33 mEq/L (21-27); ABG Oxygen Saturation 92 % (95-98); ABG PCO2 57 mmHg (35-45); ABG PH 7.38 pH Units (7.32-7.45); ABG PO2 68 mmHg (85-104); ABG TCO2 35 mEq/L (20-26)
[2018-02-06] MEDS: Ampicillin/Sulbactam 1,500 MG in 0.9 % Sodium Chloride Mini Bag 100 ML IVPB SCH ×3 (05:46→17:40)
[2018-02-06] MEDS: *HR* Heparin 5,000 UNIT/ML VIAL SQ SCH ×3 (05:46→23:31)
[2018-02-06 06:25] LABS: Basophils % 0.1 %; Immature Granulocytes % 0.4 % (0-4); Lymphocytes # 0.8 K/mcL (0.6-4.6); Lymphocytes % 7.3 %; Mean Corpuscular HGB Conc 31.6 g/dL (31.6-35.5); Mean Corpuscular Hemoglobin 30.4 pg (28.0-33.3); Mean Corpuscular Volume 96.2 fL (83.0-100.0); Mean Platelet Volume 9.8 fL (9.4-12.4); Monocytes # 0.1 K/mcL (0.0-1.3); Monocytes % 0.9 %; Neutrophils # 9.6 K/mcL (1.6-8.9); Platelet Count 419 K/mcL (140-400); Red Blood Count 3.95 M/mcL (4.19-5.50); Red Cell Distribution Width 14.3 % (11.5-14.5); Segmented Neutrophils % 91.3 %
[2018-02-06 06:44] LABS: BUN/Creatinine Ratio 17 (6-26); Blood Urea Nitrogen 9 mg/dL (6-20); Calcium 8.5 mg/dL (8.6-10.3); Carbon Dioxide 34 mEq/L (23-29); Chloride 97 mEq/L (98-107); Glucose 135 mg/dL (70-105); Osmolality,Calculated 281 (280-300); Potassium 4.1 mEq/L (3.5-5.1); Sodium 135 mEq/L (136-145); eGFR For Non-African Americans > 60 (> 60)
[2018-02-06] MEDS ORDERED: *HR* Labetalol 20 MG/4 ML SYRINGE IVP PRN (10:25)
[2018-02-06] MEDS ORDERED: Albuterol 2.5 MG/3 ML NEBULIZER IH PRN ×2 (13:14→17:41)
--- NOTE | 2018-02-06 13:27 | Internal Med Progress Note ---
Hospitalist Progress Note - Encounter Date of Encounter: 02/06/18 Time of Encounter: 14:00 - Subjective Interval History: Patient seen and examined at bedside. Patient states that he is unsure if he took too much medication. Patient denies any self-harm. Patient starting to become tremulous per RN. Home medications restarted. They have been verified through the [facility]. She denies any chest pain, shortness breath, nausea, vomiting, diarrhea. He admits to his continued chronic pain. - Exam Vitals: Temp Pulse Resp BP Pulse Ox 98.5 F 78 20 171/105 91 02/06/18 11:15 02/06/18 11:15 02/06/18 11:37 02/06/18 06:53 02/06/18 11:37 Exam: Constitutional: No acute distress, Alert Psych: AAO x 3, flat affect HEENT: NCAT, EOMI Neck: supple, no JVD Cardio: regular rate and rhythm, +s1s2 Resp: coarse breath sounds Abd: soft, non tender/non distended, positive bowel sounds Extremities: no clubbing/cyanosis/edema appreciated Neuro: no focal deficits appreciated - Assessment and Plan (1) Acute on chronic respiratory failure with hypoxia and hypercapnia Current Visit: Yes Status: Acute Assessment and Plan: -likely secondary to opiate overdose -VBG pCo2 is 84 on admission, now improved -off bipap -patient is on 3L O2 at home for COPD -in ER he desatted to 70s and was difficult to arouse and responded to narcan -also RLL opacity on CXR-suspect aspiration pna -continue unasyn, duonebs -bipap prn (2) COPD (chronic obstructive pulmonary disease) Current Visit: Yes Status: Chronic Assessment and Plan: -hx of COPD -not in exacerbation -continue nebulizer and oxygen supplementation -start home meds (3) Aspiration pneumonia Current Visit: Yes Status: Acute Assessment and Plan: -continue unasyn (4) Opiate overdose Current Visit: Yes Status: Acute Assessment and Plan: -patient was found unresponsive with only 15 out of 56 pills left of his oxycodone prescription -Patient denies suicidal ideation, suicidal attempt -He has a history of schizophrenia and bipolar disorder -He reports compliance with his medications -Unclear intent of overdose -Patient responded to Narcan in the emergency department -Patient is still somnolent -psychiatry consultation, -obtain records from [facility] psych -pink slip (5) Chronic back pain Current Visit: Yes Status: Acute Assessment and Plan: -hx of chronic low back pain on chronic opioids (6) Hx of schizophrenia Current Visit: Yes Status: Acute Assessment and Plan: -patient followed by [facility] psych -denies SI/HI, hallucinations -on fluphenazine last dose on 02/03/18 -[facility] -psych eval pending -resume home meds (7) Hx of bipolar disorder Current Visit: Yes Status: Acute Assessment and Plan: -resume home meds (8) HTN (hypertension) Current Visit: Yes Status: Acute Assessment and Plan: -bp elevated -resume home meds -labetolol prn DVT Prophylaxis: hep sq - Time Spent with Patient Total time spent is greater than 50% in coordination of care (as documented) at patient's floor/unit and/or counseling patient: 25 - 35 minutes Plan of Care Discussed with: patient Internal Medicine: Result - Labs CBC & Chem 7: 02/06/18 05:45 02/06/18 05:45 Labs: Short CBC 02/06/18 Range/Units 05:45 WBC 10.5 (4.3-11.1) K/mcL Hgb 12.0 L (12.9-16.9) g/dL Hct 38.0 (37.5-50.1) % Plt Count 419 H (140-400) K/mcL Neutrophils # 9.6 H (1.6-8.9) K/mcL BMP 02/06/18 05:45 Sodium 135 L Potassium 4.1 Chloride 97 L Carbon Dioxide 34 H BUN 9 Creatinine 0.53 L Glucose 135 H Calcium 8.5 L - ABG Interpretation ABG results: ABG ABG pH 7.38 pH Units (7.32-7.45) 02/06/18 03:55 ABG pCO2 57 mmHg (35-45) H 02/06/18 03:55 ABG pO2 68 mmHg (85-104) L 02/06/18 03:55 ABG O2 Saturation 92 % (95-98) L 02/06/18 03:55 PT/INR, D-dimer PT 10.0 Seconds (9.4-12.1) 02/05/18 17:51 Consult Discharge Plan - Plan [facility]errals: [facility] [Primary Care Provider] - (2) COPD (chronic obstructive pulmonary disease) Qualifiers: COPD type: emphysema Emphysema type: unspecified Qualified Code(s): J43.9 - Emphysema, unspecified (3) Aspiration pneumonia Qualifiers: Aspiration pneumonia type: due to gastric secretions Laterality: right Lung location: lower lobe of lung Qualified Code(s): J69.0 - Pneumonitis due to inhalation of food and vomit (4) Opiate overdose Qualifiers: Encounter type: initial encounter Injury intent: undetermined intent Qualified Code(s): T40.604A - Poisoning by unspecified narcotics, undetermined, initial encounter (5) Chronic back pain Qualifiers: Back pain location: low back pain Back pain laterality: unspecified Sciatica presence: unspecified whether sciatica present Qualified Code(s): M54.5 - Low back pain; G89.29 - Other chronic pain (8) HTN (hypertension) Qualifiers: Hypertension type: essential hypertension Qualified Code(s): I10 - Essential (primary) hypertension
--- NOTE | 2018-02-06 15:18 | Psychiatry Progress Note ---
Date of Encounter: 02/06/18 Time of Encounter: 14:10 Subjective Interval history: Psychiatric consultation note: 57 years old male admitted for evaluation of possible overdose on NyQuil. Currently is stable and denied any complaints. Has a history of paranoid schizophrenia and bipolar and he is being treated at the [facility] he tell me that he gets an injection every 2 weeks and he see a counselor and a psychiatrist. Review of psychiatric symptoms is negative. No psychosis or depression or suicidal ideation. On interview pleasant and friendly alert awake denied any symptoms of depression or psychosis. Good insight and judgment. Recommendation: Patient can be discharged when medically stable, follow-up with his psychiatrist at the [facility]. Thank you for consultation. Results - Vital Signs Vital Signs: Temp Pulse Resp BP Pulse Ox 98.5 F 78 20 171/105 91 02/06/18 11:15 02/06/18 11:15 02/06/18 11:37 02/06/18 06:53 02/06/18 11:37 - Labs Labs: Laboratory Results - last 24 hr 02/06/18 02/06/18 02/06/18 03:55 05:45 05:45 WBC 10.5 RBC 3.95 L Hgb 12.0 L Hct 38.0 MCV 96.2 MCH 30.4 MCHC 31.6 RDW 14.3 Plt Count 419 H MPV 9.8 Immature Gran % 0.4 Seg Neutrophils % 91.3 Lymphocytes % 7.3 Monocytes % 0.9 Eosinophils % 0.0 Basophils % 0.1 Neutrophils # 9.6 H Lymphocytes # 0.8 Monocytes # 0.1 Eosinophils # 0.0 Basophils # 0.0 ABG pH 7.38 ABG pCO2 57 H ABG pO2 68 L ABG HCO3 33 H ABG Total CO2 35 H ABG O2 Saturation 92 L ABG Base Excess 7 H O2 Delivery Device Cannula Inspired O2 32.0 Sodium 135 L Potassium 4.1 Chloride 97 L Carbon Dioxide 34 H BUN 9 Creatinine 0.53 L Est GFR ( Amer) > 60 Est GFR (Non-Af Amer) > 60 BUN/Creatinine Ratio 17 Glucose 135 H Calculated Osmolality 281 Calcium 8.5 L Consult Discharge Plan - Plan Referrals: [facility],PCP [Primary Care Provider] - Psychiatry Exam - Constitutional Vitals: Temp Pulse Resp BP Pulse Ox 98.5 F 78 20 171/105 91 02/06/18 11:15 02/06/18 11:15 02/06/18 11:37 02/06/18 06:53 02/06/18 11:37
[2018-02-06] MEDS: amLODIPine 5 MG TABLET PO SCH (15:25)
[2018-02-06] MEDS: Venlafaxine XR (24 HR) 37.5 MG CAP.ER.24H PO SCH (15:25)
[2018-02-06] MEDS: Loratadine 10 MG TABLET PO SCH (15:25)
[2018-02-06] MEDS: Gabapentin 300 MG CAPSULE PO SCH ×2 (15:26→20:22)
[2018-02-06] MEDS: Budesonide/Formoterol 160/4.5 1 PUFF INH IH SCH ×2 (16:45→21:49)
[2018-02-06] MEDS: Nicotine 21 MG PATCH.TD24 TD SCH (17:40)
[2018-02-07] MEDS: Ampicillin/Sulbactam 1,500 MG in 0.9 % Sodium Chloride Mini Bag 100 ML IVPB SCH ×5 (00:11→22:54)
[2018-02-07] MEDS: Ipratropium/Albuterol Neb 3 ML IH SCH ×5 (04:14→19:37)
[2018-02-07 04:29] LABS: Basophils % 0.1 %; Eosinophils # 0.1 K/mcL (0.0-0.6); Eosinophils % 0.8 %; Immature Granulocytes % 0.3 % (0-4); Lymphocytes # 1.2 K/mcL (0.6-4.6); Lymphocytes % 13.3 %; Mean Corpuscular HGB Conc 32.4 g/dL (31.6-35.5); Mean Corpuscular Hemoglobin 30.7 pg (28.0-33.3); Mean Corpuscular Volume 94.6 fL (83.0-100.0); Mean Platelet Volume 9.8 fL (9.4-12.4); Monocytes # 0.6 K/mcL (0.0-1.3); Monocytes % 6.3 %; Neutrophils # 7.3 K/mcL (1.6-8.9); Platelet Count 440 K/mcL (140-400); Red Blood Count 3.91 M/mcL (4.19-5.50); Red Cell Distribution Width 14.6 % (11.5-14.5); Segmented Neutrophils % 79.2 %
[2018-02-07] MEDS: *HR* Heparin 5,000 UNIT/ML VIAL SQ SCH ×3 (06:11→20:40)
[2018-02-07 07:24] LABS: BUN/Creatinine Ratio 22 (6-26); Blood Urea Nitrogen 10 mg/dL (6-20); Calcium 8.4 mg/dL (8.6-10.3); Carbon Dioxide 29 mEq/L (23-29); Chloride 102 mEq/L (98-107); Glucose 111 mg/dL (70-105); Osmolality,Calculated 286 (280-300); Potassium 3.8 mEq/L (3.5-5.1); Sodium 138 mEq/L (136-145); eGFR For Non-African Americans > 60 (> 60)
[2018-02-07] MEDS: Budesonide/Formoterol 160/4.5 1 PUFF INH IH SCH ×2 (07:25→19:37)
[2018-02-07] MEDS: NIFEdipine XL (24 HR) 30 MG TAB.ER.24 PO SCH (08:50)
[2018-02-07] MEDS: Gabapentin 300 MG CAPSULE PO SCH ×3 (08:51→20:40)
[2018-02-07] MEDS: Venlafaxine XR (24 HR) 37.5 MG CAP.ER.24H PO SCH (08:51)
[2018-02-07] MEDS: Loratadine 10 MG TABLET PO SCH (08:51)
[2018-02-07] MEDS: Cholecalciferol (D-3) 1,000 UNIT TABLET PO SCH (08:51)
[2018-02-07] MEDS: amLODIPine 5 MG TABLET PO SCH (08:52)
[2018-02-07] MEDS: Nicotine 21 MG PATCH.TD24 TD SCH (08:52)
[2018-02-07] MEDS: Acetaminophen 325 MG TABLET PO PRN ×2 (08:52→17:25)
--- NOTE | 2018-02-07 11:01 | Internal Med Progress Note ---
Hospitalist Progress Note - Encounter Date of Encounter: 02/07/18 Time of Encounter: 09:20 - Subjective Interval History: states was previously treated for pna just prior to admit and was feeling better. + sob, at baseline. denies cough, wheezing, orthopnea. no chesst pain. takes chronic opiods for chronic neck and low back pain. Pain currently, declined lidocaine patch. + symptoms of opioid w/d including cold sweats, abd cramping, muscle aches. Denies cp, pressure, palpitations, nausea, emesis, fevers or chills. - Exam Vitals: Temp Pulse Resp BP Pulse Ox 98.8 F 85 18 163/98 94 02/07/18 06:56 02/07/18 06:56 02/07/18 07:27 02/07/18 06:56 02/07/18 09:03 Exam: General: awake, alert, appears stated age HEENT:EOM intact, pupils equal, round, moist mucus membranes Neck: supple, trachea midline Cardiovascular:regular rate and rhythm, normal S1 & S2, no rubs, murmurs or gallops. No JVD. radial pulses 2+, no lower extremity edema Lungs:Normal breath sounds, no wheezes, rhonchi, or crackles. Normal respiratory effort on O2 nc Abdomen:Soft, non-tender, non-distended, + bowel sounds Neurological: AAOx3, CN grossly intact, no hand tremor Skin:Normal color, no rash, no pallor,+ beads of sweat along hairline - Assessment and Plan (1) Acute on chronic respiratory failure with hypoxia and hypercapnia Current Visit: Yes Status: Acute Assessment and Plan: -likely secondary to opiate overdose and Possible Pna -in ER he desatted to 70s and was difficult to arouse and responded to narcan -also RLL opacity on CXR-suspect aspiration pna -VBG pCo2 is 84 on admission, now improved -off bipap -patient is on 3L O2 at home for COPD, weaning o2 to home o2 -continue unasyn -prn nebs, standing nebs, home symbicort + singulair (2) COPD (chronic obstructive pulmonary disease) Current Visit: Yes Status: Chronic Assessment and Plan: -hx of COPD -cont home meds as above -treatment as above (3) Aspiration pneumonia Current Visit: Yes Status: Acute Assessment and Plan: -treatment as above -when dc will dc on augmentin (4) Opiate overdose Current Visit: Yes Status: Resolved Assessment and Plan: -patient was found unresponsive with only 15 out of 56 pills left of his oxycodone prescription -Patient denies suicidal ideation, suicidal attempt -He has a history of schizophrenia and bipolar disorder -He reports compliance with his medications -Unclear intent of overdose so was pink slipped and placed with sitter and precautions -Patient responded to Narcan in the emergency department -psychiatry consultation and determine pt will be safe for dc to home with outpt fu -follows at [facility] for pscyhi[facility]ry and will fu there outpt -adjunctive prns for opiate withdrawal, cont to hold any opiates (5) Chronic back pain Current Visit: Yes Status: Chronic Assessment and Plan: -hx of chronic low back pain on chronic opioids -refused lidocaine patch -holding opiates as above (6) Hx of schizophrenia Current Visit: Yes Status: Chronic Assessment and Plan: -patient followed by [facility] psych -denies SI/HI, hallucinations -on fluphenazine last dose on 02/03/18, f/u outpt for next dose in 2 weeks -psych eval here and rec [facility] -cont home meds (7) Hx of bipolar disorder Current Visit: Yes Status: Chronic Assessment and Plan: -treatment and fu as above (8) HTN (hypertension) Current Visit: Yes Status: Acute Assessment and Plan: -bp elevated -resume home meds and monitor -will up titrate as needed -labetolol prn DVT Prophylaxis: hep sq - Time Spent with Patient Total time spent is greater than 50% in coordination of care (as documented) at patient's floor/unit and/or counseling patient: 25 - 35 minutes Plan of Care Discussed with: patient Internal Medicine: Result - Labs CBC & Chem 7: 02/07/18 04:03 02/07/18 06:52 Labs: Short CBC 02/07/18 Range/Units 04:03 WBC 9.2 (4.3-11.1) K/mcL Hgb 12.0 L (12.9-16.9) g/dL Hct 37.0 L (37.5-50.1) % Plt Count 440 H (140-400) K/mcL Neutrophils # 7.3 (1.6-8.9) K/mcL BMP 02/07/18 06:52 Sodium 138 Potassium 3.8 Chloride 102 Carbon Dioxide 29 BUN 10 Creatinine 0.46 L Glucose 111 H Calcium 8.4 L - ABG Interpretation ABG results: ABG ABG pH 7.38 pH Units (7.32-7.45) 02/06/18 03:55 ABG pCO2 57 mmHg (35-45) H 02/06/18 03:55 ABG pO2 68 mmHg (85-104) L 02/06/18 03:55 ABG O2 Saturation 92 % (95-98) L 02/06/18 03:55 PT/INR, D-dimer PT 10.0 Seconds (9.4-12.1) 02/05/18 17:51 Consult Discharge Plan - Plan [facility]errals: [facility] [Primary Care Provider] - (2) COPD (chronic obstructive pulmonary disease) Qualifiers: COPD type: emphysema Emphysema type: unspecified Qualified Code(s): J43.9 - Emphysema, unspecified (3) Aspiration pneumonia Qualifiers: Aspiration pneumonia type: due to gastric secretions Laterality: right Lung location: lower lobe of lung Qualified Code(s): J69.0 - Pneumonitis due to inhalation of food and vomit (4) Opiate overdose Qualifiers: Encounter type: initial encounter Injury intent: undetermined intent Qualified Code(s): T40.604A - Poisoning by unspecified narcotics, undetermined, initial encounter (5) Chronic back pain Qualifiers: Back pain location: low back pain Back pain laterality: unspecified Sciatica presence: unspecified whether sciatica present Qualified Code(s): M54.5 - Low back pain; G89.29 - Other chronic pain (8) HTN (hypertension) Qualifiers: Hypertension type: essential hypertension Qualified Code(s): I10 - Essential (primary) hypertension
[2018-02-07] MEDS: cloNIDine HCl 0.1 MG TABLET PO PRN ×2 (15:10→22:54)
--- NOTE | 2018-02-07 17:37 | Electrocardiograph Report ---
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
[2018-02-07] MEDS: Ondansetron 4 MG/2 ML VIAL IVP PRN (20:40)
[2018-02-08] MEDS: Ipratropium/Albuterol Neb 3 ML IH SCH ×7 (00:01→23:53)
[2018-02-08] MEDS: Acetaminophen 325 MG TABLET PO PRN ×3 (03:49→20:16)
[2018-02-08] MEDS: *HR* Heparin 5,000 UNIT/ML VIAL SQ SCH ×3 (05:05→20:15)
[2018-02-08] MEDS: Ampicillin/Sulbactam 1,500 MG in 0.9 % Sodium Chloride Mini Bag 100 ML IVPB SCH ×4 (05:06→23:44)
[2018-02-08] MEDS: Budesonide/Formoterol 160/4.5 1 PUFF INH IH SCH ×2 (07:26→19:40)
[2018-02-08] MEDS: Loratadine 10 MG TABLET PO SCH (08:11)
[2018-02-08] MEDS: amLODIPine 5 MG TABLET PO SCH (08:11)
[2018-02-08] MEDS: Venlafaxine XR (24 HR) 37.5 MG CAP.ER.24H PO SCH (08:11)
[2018-02-08] MEDS: NIFEdipine XL (24 HR) 30 MG TAB.ER.24 PO SCH (08:11)
[2018-02-08] MEDS: Gabapentin 300 MG CAPSULE PO SCH ×3 (08:11→20:16)
--- NOTE | 2018-02-08 08:11 | Internal Med Progress Note ---
Hospitalist Progress Note - Encounter Date of Encounter: 02/08/18 Time of Encounter: 09:10 - Subjective Interval History: awake, feeling better. no sob on home o2 nc. amulating to bathroom without difficulty. + cough, no sputum. denies wheezing, cp, palpitations. no further cold sweats or muscle cramps today. looking forward to dc back to facility - Exam Vitals: Temp Pulse Resp BP Pulse Ox 98.8 F 84 18 136/82 94 02/08/18 08:10 02/08/18 08:10 02/08/18 08:10 02/08/18 08:10 02/08/18 08:10 Exam: General: awake, alert, appears stated age Cardiovascular:regular rate and rhythm, normal S1 & S2, no rubs, murmurs or gallops. No JVD. radial pulses 2+, no lower extremity edema Lungs:Normal breath sounds, no wheezes, rhonchi, or crackles. Normal respiratory effort on O2 nc Abdomen:Soft, non-tender, non-distended, + bowel sounds Neurological: AAOx3 Skin:Normal color, no rash, no pallor,dry, warm - Assessment and Plan (1) Acute on chronic respiratory failure with hypoxia and hypercapnia Current Visit: Yes Status: Resolved Assessment and Plan: -likely secondary to opiate overdose and Possible Pna -in ER he desatted to 70s and was difficult to arouse and responded to narcan -also RLL opacity on CXR-suspect aspiration pna -VBG pCo2 is 84 on admission, now improved -off bipap -patient is on 3L O2 at home for COPD, weaned o2 to home o2 -continue unasyn inpt, will treat with augmentin on dc -prn nebs, standing nebs, home symbicort + singulair -increase activity -is ready for dc but [facility] facility not ready for pt yet today, hopefully tomorrow (2) COPD (chronic obstructive pulmonary disease) Current Visit: Yes Status: Chronic Assessment and Plan: -hx of COPD -cont home meds as above -treatment as above (3) Aspiration pneumonia Current Visit: Yes Status: Acute Assessment and Plan: -treatment as above -when dc will dc on augmentin (4) Opiate overdose Current Visit: Yes Status: Resolved Assessment and Plan: -patient was found unresponsive with only 15 out of 56 pills left of his oxycodone prescription -Patient denies suicidal ideation, suicidal attempt -He has a history of schizophrenia and bipolar disorder -He reports compliance with his medications -Unclear intent of overdose so was pink slipped and placed with sitter and precautions -Patient responded to Narcan in the emergency department -psychiatry consultation and determine pt will be safe for dc to home with outpt fu -follows at [facility] for pscyhiatry and will fu there outpt -adjunctive prns for opiate withdrawal, cont to hold any opiates -he is going to [facility] upon dc as he requested to and CM working with [facility] for placement--anticipate will be approved to go with facility ready for him 02/09 per d/w cm 02/08 (5) Chronic back pain Current Visit: Yes Status: Chronic Assessment and Plan: -hx of chronic low back pain on chronic opioids -refused lidocaine patch -holding opiates as above (6) Hx of schizophrenia Current Visit: Yes Status: Chronic Assessment and Plan: -patient followed by [facility] psych -denies SI/HI, hallucinations -on fluphenazine last dose on 02/03/18, f/u outpt for next dose in 2 weeks -psych eval here and [facility] -cont home meds (7) Hx of bipolar disorder Current Visit: Yes Status: Chronic Assessment and Plan: -treatment and fu as above (8) HTN (hypertension) Current Visit: Yes Status: Acute Assessment and Plan: -bp elevated, resolved with re initiation of home meds -will up titrate as needed -labetolol prn -fu outpt for further monitoring and management DVT Prophylaxis: hep sq - Time Spent with Patient Total time spent is greater than 50% in coordination of care (as documented) at patient's floor/unit and/or counseling patient: 25 - 35 minutes Plan of Care Discussed with: patient Internal Medicine: Result - Labs CBC & Chem 7: 02/07/18 04:03 02/07/18 06:52 - ABG Interpretation ABG results: ABG ABG pH 7.38 pH Units (7.32-7.45) 02/06/18 03:55 ABG pCO2 57 mmHg (35-45) H 02/06/18 03:55 ABG pO2 68 mmHg (85-104) L 02/06/18 03:55 ABG O2 Saturation 92 % (95-98) L 02/06/18 03:55 PT/INR, D-dimer PT 10.0 Seconds (9.4-12.1) 02/05/18 17:51 Consult Discharge Plan - Plan [facility]errals: [facility] [Primary Care Provider] - (2) COPD (chronic obstructive pulmonary disease) Qualifiers: COPD type: emphysema Emphysema type: unspecified Qualified Code(s): J43.9 - Emphysema, unspecified (3) Aspiration pneumonia Qualifiers: Aspiration pneumonia type: due to gastric secretions Laterality: right Lung location: lower lobe of lung Qualified Code(s): J69.0 - Pneumonitis due to inhalation of food and vomit (4) Opiate overdose Qualifiers: Encounter type: initial encounter Injury intent: undetermined intent Qualified Code(s): T40.604A - Poisoning by unspecified narcotics, undetermined, initial encounter (5) Chronic back pain Qualifiers: Back pain location: low back pain Back pain laterality: unspecified Sciatica presence: unspecified whether sciatica present Qualified Code(s): M54.5 - Low back pain; G89.29 - Other chronic pain (8) HTN (hypertension) Qualifiers: Hypertension type: essential hypertension Qualified Code(s): I10 - Essential (primary) hypertension
[2018-02-08] MEDS: Cholecalciferol (D-3) 1,000 UNIT TABLET PO SCH (08:12)
[2018-02-08] MEDS: Nicotine 21 MG PATCH.TD24 TD SCH (08:12)
[2018-02-08] MEDS: cloNIDine HCl 0.1 MG TABLET PO PRN ×3 (08:12→23:44)
[2018-02-08] MEDS: Ondansetron 4 MG/2 ML VIAL IVP PRN ×2 (15:50→23:44)
[2018-02-09] MEDS ORDERED: Sennosides 8.6 MG TABLET PO PRN (00:10)
[2018-02-09] MEDS: Ipratropium/Albuterol Neb 3 ML IH SCH ×6 (04:02→23:38)
[2018-02-09] MEDS: Acetaminophen 325 MG TABLET PO PRN ×3 (05:14→21:13)
[2018-02-09] MEDS: *HR* Heparin 5,000 UNIT/ML VIAL SQ SCH ×3 (05:15→21:18)
[2018-02-09] MEDS: Ampicillin/Sulbactam 1,500 MG in 0.9 % Sodium Chloride Mini Bag 100 ML IVPB SCH (05:16)
[2018-02-09] MEDS: Budesonide/Formoterol 160/4.5 1 PUFF INH IH SCH ×2 (07:32→19:45)
[2018-02-09] MEDS: Cholecalciferol (D-3) 1,000 UNIT TABLET PO SCH (08:29)
[2018-02-09] MEDS: Gabapentin 300 MG CAPSULE PO SCH ×3 (08:29→21:11)
[2018-02-09] MEDS: Loratadine 10 MG TABLET PO SCH (08:30)
[2018-02-09] MEDS: amLODIPine 5 MG TABLET PO SCH (08:30)
[2018-02-09] MEDS: NIFEdipine XL (24 HR) 30 MG TAB.ER.24 PO SCH (08:30)
[2018-02-09] MEDS: Venlafaxine XR (24 HR) 37.5 MG CAP.ER.24H PO SCH (08:30)
[2018-02-09] MEDS: Nicotine 21 MG PATCH.TD24 TD SCH (08:31)
--- NOTE | 2018-02-09 08:54 | Discharge Summary ---
Date of Encounter: 02/09/18 - Discharge Diagnosis (1) Acute on chronic respiratory failure with hypoxia and hypercapnia Status: Resolved (2) COPD (chronic obstructive pulmonary disease) Status: Chronic Qualifiers: COPD type: emphysema Emphysema type: unspecified Qualified Code(s): J43.9 - Emphysema, unspecified (3) Aspiration pneumonia Status: Acute Qualifiers: Aspiration pneumonia type: due to gastric secretions Laterality: right Lung location: lower lobe of lung Qualified Code(s): J69.0 - Pneumonitis due to inhalation of food and vomit (4) Opiate overdose Status: Resolved Qualifiers: Encounter type: initial encounter Injury intent: undetermined intent Qualified Code(s): T40.604A - Poisoning by unspecified narcotics, undetermined, initial encounter (5) Chronic back pain Status: Chronic Qualifiers: Back pain location: low back pain Back pain laterality: unspecified Sciatica presence: unspecified whether sciatica present Qualified Code(s): M54.5 - Low back pain; G89.29 - Other chronic pain (6) Hx of schizophrenia Status: Chronic (7) Hx of bipolar disorder Status: Chronic (8) HTN (hypertension) Status: Acute Qualifiers: Hypertension type: essential hypertension Qualified Code(s): I10 - Essential (primary) hypertension Hospital course: Mr. Curran is a 57 year old male - Time Spent with Patient Total time spent providing and/or coordinating discharge services: - Discharge Medications Home Medications: Albuterol Neb [Proventil Neb] 2.5 mg IH Q6H PRN 02/06/18 [History] Albuterol Sulfate [Albuterol Inhaler] 2 puff IH Q4HR PRN 02/06/18 [History] Amlodipine Besylate 10 mg PO DAILY 02/06/18 [History] Atorvastatin Calcium [Lipitor] 10 mg PO HS 02/06/18 [History] Bisacodyl [Woman's Laxative] 5 mg PO DAILY PRN 02/06/18 [History] Budesonide/Formoterol 160/4.5 [Symbicort 160/4.5] 2 puff IH BIDR 02/06/18 [ History] Calcium Carbonate/Vitamin D3 [Calcium 250+D Tablet] 1 tab PO DAILY 02/06/18 [ History] Cetirizine HCl [All Day Allergy] 10 mg PO DAILY 02/06/18 [History] Gabapentin [Neurontin] 600 mg PO TID 02/06/18 [History] GuaiFENesin/Dextromethorphan [Children's Mucinex Cough Liq] 10 ml PO TID PRN [History] Losartan Potassium [Cozaar] 50 mg PO BID 02/06/18 [History] Montelukast [Singulair] 10 mg PO DAILY 02/06/18 [History] NIFEdipine [Nifedipine ER] 90 mg PO DAILY 02/06/18 [History] Nicotine Polacrilex [Nicotine Lozenge] 2 mg BC Q3H PRN 02/06/18 [History] OxyCODONE/APAP 5/325 [Percocet 5/325 MG] 1 tab PO Q6HR PRN 02/06/18 [History] Quetiapine Fumarate [Seroquel] 200 mg PO HS 02/06/18 [History] Trihexyphenidyl [Artane] 4 mg PO TID 02/06/18 [History] Venlafaxine HCl [Effexor Xr] 37.5 mg PO DAILY 02/06/18 [History] acetaZOLAMIDE [Diamox] 500 mg PO FR 02/06/18 [History] fluPHENAZine decanoate [Prolixin] 75 mg IM Q14D 02/06/18 [History] Allergies/Adverse Reactions: 3 Allergy/AdvReac Type Severity Reaction Status Date / Time bupropion AdvReac Unknown Verified 02/06/18 10:05 codeine AdvReac Unknown Verified 02/06/18 10:05 haloperidol [From Haldol] AdvReac Unknown Verified 02/06/18 10:05 hydroxyzine AdvReac Anaphylaxis Verified 02/07/18 13:53 morphine AdvReac Unknown Verified 02/06/18 10:05 tramadol AdvReac Unknown Verified 02/06/18 10:05 Varenicline [From Chantix] AdvReac Unknown Verified 02/06/18 10:05 Date of admission: 02/08/18 14:01 Primary care physician: PCP DYLAN - Constitutional Vitals: Temp Pulse Resp BP Pulse Ox 98.6 F 78 16 142/91 94 02/09/18 07:02 02/09/18 07:02 02/09/18 07:34 02/09/18 07:02 02/09/18 07:34 - Discharge Instructions Follow Up With: DYLAN,PCP [Primary Care Provider] -
[2018-02-09] MEDS: cloNIDine HCl 0.1 MG TABLET PO PRN ×2 (12:35→21:14)
--- NOTE | 2018-02-09 14:57 | Internal Med Progress Note ---
Hospitalist Progress Note - Encounter Date of Encounter: 02/09/18 Time of Encounter: 09:40 - Subjective Interval History: awake, feeling well. cough and clearing some yellow sputum, occassionally clear. no fevers, chills, wheezing or sob on home o2. grateful for care here. aware barrier to dc is placement. [facility] is [facility] to [facility]. - Exam Vitals: Temp Pulse Resp BP Pulse Ox 98.8 F 86 18 157/92 92 02/09/18 12:39 02/09/18 12:39 02/09/18 12:39 02/09/18 12:39 02/09/18 12:39 Exam: General: awake, alert, appears stated age Cardiovascular:regular rate and rhythm, normal S1 & S2, no murmurs appreciated. No JVD. radial pulses 2+, no lower extremity edema Lungs:Normal breath sounds, no wheezes, rhonchi, or crackles. Normal respiratory effort on O2 nc Abdomen:Soft, non-tender, non-distended, + bowel sounds Neurological: AAOx3 Skin:Normal color, no rash, no pallor - Assessment and Plan (1) Acute on chronic respiratory failure with hypoxia and hypercapnia Current Visit: Yes Status: Resolved Assessment and Plan: -likely secondary to opiate overdose and Possible Pna -in ER he desatted to 70s and was difficult to arouse and responded to narcan -also RLL opacity on CXR-suspect aspiration pna -VBG pCo2 is 84 on admission, now improved -off bipap -patient is on 3L O2 at home for COPD, weaned o2 to home o2 -unasyn inpt, now changed to augmentin awaiting placement for discharge -prn nebs, standing nebs, home symbicort + singulair -increase activity -is ready for dc but [facility] him and SW working with outpt case finisher to facilitate safe discharge, d/w GHULAM Lopez and she may not be able to facilitate dc today either, awaiting further info from his court appointed guardian whom is in court today (2) COPD (chronic obstructive pulmonary disease) Current Visit: Yes Status: Chronic Assessment and Plan: -hx of COPD -cont home meds as above -treatment as above (3) Aspiration pneumonia Current Visit: Yes Status: Acute Assessment and Plan: -treatment as above -when dc will dc on augmentin (4) Opiate overdose Current Visit: Yes Status: Resolved Assessment and Plan: -patient was found unresponsive with only 15 out of 56 pills left of his oxycodone prescription -Patient denies suicidal ideation, suicidal attempt -He has a history of schizophrenia and bipolar disorder -He reports compliance with his medications -Unclear intent of overdose so was pink slipped and placed with sitter and precautions -Patient responded to Narcan in the emergency department -psychiatry consultation and determine pt will be safe for dc to home with outpt fu -follows at [facility] for pscyhiatry and will fu there outpt -adjunctive prns for opiate withdrawal, cont to hold any opiates -02/08 [facility] dc as he requested to and CM working with [facility] for placement--now 02/09 not approved -cm actively working for discharge plan with pt court appointed guardian- regardless [facility] to [facility] or not, he will follow up with outpt psych there (5) Chronic back pain Current Visit: Yes Status: Chronic Assessment and Plan: -hx of chronic low back pain on chronic opioids -refused lidocaine patch -holding opiates as above (6) Hx of schizophrenia Current Visit: Yes Status: Chronic Assessment and Plan: -patient followed by [facility] psych -denies SI/[facility], hallucinations -on fluphenazine last dose on 02/03/18, f/u outpt for next dose in 2 weeks -psych eval here and rec to [facility] -cont home meds (7) Hx of bipolar disorder Current Visit: Yes Status: Chronic Assessment and Plan: -treatment and fu as above (8) HTN (hypertension) Current Visit: Yes Status: Acute Assessment and Plan: -bp elevated, resolved with re initiation of home meds -will up titrate as needed -labetolol prn -fu outpt for further monitoring and management DVT Prophylaxis: hep sq - Time Spent with Patient Total time spent is greater than 50% in coordination of care (as documented) at patient's floor/unit and/or counseling patient: 25 - 35 minutes Plan of Care Discussed with: patient Internal Medicine: Result - Labs CBC & Chem 7: 02/07/18 04:03 02/07/18 06:52 - ABG Interpretation ABG results: ABG ABG pH 7.38 pH Units (7.32-7.45) 02/06/18 03:55 ABG pCO2 57 mmHg (35-45) H 02/06/18 03:55 ABG pO2 68 mmHg (85-104) L 02/06/18 03:55 ABG O2 Saturation 92 % (95-98) L 02/06/18 03:55 PT/INR, D-dimer PT 10.0 Seconds (9.4-12.1) 02/05/18 17:51 Consult Discharge Plan - Plan Additional Instructions: Barrier to discharge is placement. Has been med clear since 02/08/18 [facility]errals: [facility] [Primary Care Provider] - (2) COPD (chronic obstructive pulmonary disease) Qualifiers: COPD type: emphysema Emphysema type: unspecified Qualified Code(s): J43.9 - Emphysema, unspecified (3) Aspiration pneumonia Qualifiers: Aspiration pneumonia type: due to gastric secretions Laterality: right Lung location: lower lobe of lung Qualified Code(s): J69.0 - Pneumonitis due to inhalation of food and vomit (4) Opiate overdose Qualifiers: Encounter type: initial encounter Injury intent: undetermined intent Qualified Code(s): T40.604A - Poisoning by unspecified narcotics, undetermined, initial encounter (5) Chronic back pain Qualifiers: Back pain location: low back pain Back pain laterality: unspecified Sciatica presence: unspecified whether sciatica present Qualified Code(s): M54.5 - Low back pain; G89.29 - Other chronic pain (8) HTN (hypertension) Qualifiers: Hypertension type: essential hypertension Qualified Code(s): I10 - Essential (primary) hypertension
[2018-02-09] MEDS ORDERED: Ipratropium/Albuterol Neb 3 ML IH PRN (23:50)
[2018-02-10] MEDS: Acetaminophen 325 MG TABLET PO PRN (06:31)
[2018-02-10] MEDS: *HR* Heparin 5,000 UNIT/ML VIAL SQ SCH (06:31)
[2018-02-10] MEDS: Budesonide/Formoterol 160/4.5 1 PUFF INH IH SCH (07:53)
[2018-02-10 08:07] VITALS: BP 156/97
--- NOTE | 2018-02-10 09:27 | Discharge Summary ---
- NOTES TO OUTPATIENT PROVIDER Notes to Outpatient Provider: he requires outpt pcp follow up for pna, copd and htn, opiates were stopped this admission, he will cpmplete course of augmentin for pna; outpt psych per [place] Date of Encounter: 02/10/18 Time of Encounter: 09:30 - Discharge Diagnosis (1) Acute on chronic respiratory failure with hypoxia and hypercapnia Priority: Primary Status: Resolved Assessment and Plan: -likely secondary to opiate overdose and Possible Pna -in ER he desatted to 70s and was difficult to arouse and responded to narcan -also RLL opacity on CXR-suspect aspiration pna -VBG pCo2 is 84 on admission, now improved -off bipap -patient is on 3L O2 at home for COPD, weaned o2 to home o2 -unasyn inpt, now changed to augmentin awaiting placement for discharge, complete course outpt -prn nebs, standing nebs, home symbicort + singulair -increased activity -is ready for dc with [facility] today (2) COPD (chronic obstructive pulmonary disease) Priority: Secondary Status: Chronic Assessment and Plan: -hx of COPD -cont home meds as above -treatment as above Qualifiers: COPD type: emphysema Emphysema type: unspecified Qualified Code(s): J43.9 - Emphysema, unspecified (3) Aspiration pneumonia Priority: Primary Status: Acute Assessment and Plan: -treatment as above -when dc will dc on augmentin Qualifiers: Aspiration pneumonia type: due to gastric secretions Laterality: right Lung location: lower lobe of lung Qualified Code(s): J69.0 - Pneumonitis due to inhalation of food and vomit (4) Opiate overdose Priority: Primary Status: Resolved Assessment and Plan: -patient was found unresponsive with only 15 out of 56 pills left of his oxycodone prescription -Patient denies suicidal ideation, suicidal attempt -He has a history of schizophrenia and bipolar disorder -He reports compliance with his medications -Unclear intent of overdose so was pink slipped and placed with sitter and precautions -Patient responded to Narcan in the emergency department -psychiatry consultation and determine pt will be safe for dc to home with outpt fu -[facility] and will dc to nursing home psych unit there -adjunctive prns for opiate withdrawal this admission, cont to hold any opiates on dc Qualifiers: Encounter type: initial encounter Injury intent: undetermined intent Qualified Code(s): T40.604A - Poisoning by unspecified narcotics, undetermined, initial encounter (5) Chronic back pain Priority: Secondary Status: Chronic Assessment and Plan: -hx of chronic low back pain on chronic opioids - lidocaine patch -holding opiates as above Qualifiers: Back pain location: low back pain Back pain laterality: unspecified Sciatica presence: unspecified whether sciatica present Qualified Code(s): M54.5 - Low back pain; G89.29 - Other chronic pain (6) Hx of schizophrenia Priority: Secondary Status: Chronic Assessment and Plan: -patient followed by [facility] psych -denies SI/[facility], hallucinations -on fluphenazine last dose on 02/03/18, f/u outpt for next dose in 2 weeks -psych eval here and rec to [facility] -cont home meds (7) Hx of bipolar disorder Priority: Secondary Status: Chronic Assessment and Plan: -treatment and fu as above (8) HTN (hypertension) Priority: Secondary Status: Acute Assessment and Plan: -bp stable -multi drug regimen, cont home meds and added BB this admit -fu outpt for further monitoring and management Qualifiers: Hypertension type: essential hypertension Qualified Code(s): I10 - Essential (primary) hypertension Hospital course: Mr Curran presented to ED with altered mental status and was supected to have taken too many of his prescribed home opiate. He had acute on chronic resp failure and responded to narcan. He was diagnosed with possible pna, pssobily aspiration given his presentation and was treated with IV abx. His respiratory status improved with treatment as detailed above. his mental status returned to his baseline. Psychiatry evaluated him given the concer for medicaiton overdose and deemed him safe for dc to home with outp psych fu. Casee management worked closely with his outpt team and michael to facilitate dc to [facility] and pt very [facility] this placement [facility]. DC to [facility] facility in stable condition. Details of hospital course as above in assessment/plan - Time Spent with Patient Total time spent providing and/or coordinating discharge services: - Discharge Medications Home Medications: Albuterol Neb [Proventil Neb] 2.5 mg IH Q6H PRN 02/06/18 [History] Albuterol Sulfate [Albuterol Inhaler] 2 puff IH Q4HR PRN 02/06/18 [History] Amlodipine Besylate 10 mg PO DAILY 02/06/18 [History] Atorvastatin Calcium [Lipitor] 10 mg PO HS 02/06/18 [History] Bisacodyl [Woman's Laxative] 5 mg PO DAILY PRN 02/06/18 [History] Budesonide/Formoterol 160/4.5 [Symbicort 160/4.5] 2 puff IH BIDR 02/06/18 [ History] Calcium Carbonate/Vitamin D3 [Calcium 250+D Tablet] 1 tab PO DAILY 02/06/18 [ History] Cetirizine HCl [All Day Allergy] 10 mg PO DAILY 02/06/18 [History] Gabapentin [Neurontin] 600 mg PO TID 02/06/18 [History] GuaiFENesin/Dextromethorphan [Children's Mucinex Cough Liq] 10 ml PO TID PRN [History] Losartan Potassium [Cozaar] 50 mg PO BID 02/06/18 [History] Montelukast [Singulair] 10 mg PO DAILY 02/06/18 [History] NIFEdipine [Nifedipine ER] 90 mg PO DAILY 02/06/18 [History] Nicotine Polacrilex [Nicotine Lozenge] 2 mg BC Q3H PRN 02/06/18 [History] Quetiapine Fumarate [Seroquel] 200 mg PO HS 02/06/18 [History] Trihexyphenidyl [Artane] 4 mg PO TID 02/06/18 [History] Venlafaxine HCl [Effexor Xr] 37.5 mg PO DAILY 02/06/18 [History] acetaZOLAMIDE [Diamox] 500 mg PO FR 02/06/18 [History] fluPHENAZine decanoate [Prolixin] 75 mg IM Q14D 02/06/18 [History] Amoxicillin/Clavulanate [Augmentin] 875 mg PO BIDWM 6 Days #12 tablet 02/10/18 [ Rx] Lidocaine Patch [Lidoderm 5% patch] 1 each TP DAILY adh..patch 02/10/18 [Rx] Metoprolol [Lopressor] 50 mg PO BID tablet 02/10/18 [Rx] Nicotine Patch [Nicoderm] 21 mg TD DAILY patch.td24 02/10/18 [Rx] Allergies/Adverse Reactions: 3 Allergy/AdvReac Type Severity Reaction Status Date / Time bupropion AdvReac Unknown Verified 02/06/18 10:05 codeine AdvReac Unknown Verified 02/06/18 10:05 haloperidol [From Haldol] AdvReac Unknown Verified 02/06/18 10:05 hydroxyzine AdvReac Anaphylaxis Verified 02/07/18 13:53 morphine AdvReac Unknown Verified 02/06/18 10:05 tramadol AdvReac Unknown Verified 02/06/18 10:05 Varenicline [From Chantix] AdvReac Unknown Verified 02/06/18 10:05 Date of admission: 02/08/18 14:01 Primary care [facility]: [facility] Discharg[facility]: Ghazal Lindsay - Constitutional Vitals: Temp Pulse Resp BP Pulse Ox 98.7 F 87 18 156/97 99 02/10/18 08:06 02/10/18 08:06 02/10/18 08:06 02/10/18 08:06 02/10/18 08:06 Exam: General: awake, alert, appears stated age, smiling/pleasant Cardiovascular:regular rate and rhythm, normal S1 & S2, no murmurs appreciated. No JVD. no lower extremity edema Lungs:Normal breath sounds, no wheezes, rhonchi, or crackles. Normal respiratory effort on O2 nc Abdomen:Soft, non-tender, non-distended, + bowel sounds Neurological: AAOx3 Skin:Normal color, no rash, no pallor - Patient Status Disposition: Transfer Other Condition: Good Overall status at discharge: patient is back to baseline - Discharge Instructions Follow [facility] With: [facility] [[facility] Care Provider[facility] - - Diet and Activity Activity: increase activity as tolerated Diet: low fat, low cholesterol, low salt diet
[2018-02-10] MEDS: Loratadine 10 MG TABLET PO SCH (09:31)
[2018-02-10] MEDS: NIFEdipine XL (24 HR) 30 MG TAB.ER.24 PO SCH (09:31)
[2018-02-10] MEDS: Gabapentin 300 MG CAPSULE PO SCH (09:31)
[2018-02-10] MEDS: Venlafaxine XR (24 HR) 37.5 MG CAP.ER.24H PO SCH (09:32)
[2018-02-10] MEDS: Cholecalciferol (D-3) 1,000 UNIT TABLET PO SCH (09:32)
--- NOTE | 2018-02-10 09:34 | Physician Discharge Referral ---
[facility] Ref[facility] Info [facility] Provider in Charge after Transfer: PCP - Diagnosis (1) Acute on chronic respiratory failure with hypoxia and hypercapnia Priority: Primary Status: Resolved (2) COPD (chronic obstructive pulmonary disease) Priority: Secondary Status: Chronic (3) Aspiration pneumonia Priority: Primary Status: Acute (4) Opiate overdose Priority: Primary Status: Resolved (5) Chronic back pain Priority: Secondary Status: Chronic (6) Hx of schizophrenia Priority: Secondary Status: Chronic (7) Hx of bipolar disorder Priority: Secondary Status: Chronic (8) HTN (hypertension) Priority: Secondary Status: Acute Prognosis: Good - Transfer Medications Home Medications: Albuterol Neb [Proventil Neb] 2.5 mg IH Q6H PRN 02/06/18 [History] Albuterol Sulfate [Albuterol Inhaler] 2 puff IH Q4HR PRN 02/06/18 [History] Amlodipine Besylate 10 mg PO DAILY 02/06/18 [History] Atorvastatin Calcium [Lipitor] 10 mg PO HS 02/06/18 [History] Bisacodyl [Woman's Laxative] 5 mg PO DAILY PRN 02/06/18 [History] Budesonide/Formoterol 160/4.5 [Symbicort 160/4.5] 2 puff IH BIDR 02/06/18 [ History] Calcium Carbonate/Vitamin D3 [Calcium 250+D Tablet] 1 tab PO DAILY 02/06/18 [ History] Cetirizine HCl [All Day Allergy] 10 mg PO DAILY 02/06/18 [History] Gabapentin [Neurontin] 600 mg PO TID 02/06/18 [History] GuaiFENesin/Dextromethorphan [Children's Mucinex Cough Liq] 10 ml PO TID PRN [History] Losartan Potassium [Cozaar] 50 mg PO BID 02/06/18 [History] Montelukast [Singulair] 10 mg PO DAILY 02/06/18 [History] NIFEdipine [Nifedipine ER] 90 mg PO DAILY 02/06/18 [History] Nicotine Polacrilex [Nicotine Lozenge] 2 mg BC Q3H PRN 02/06/18 [History] Quetiapine Fumarate [Seroquel] 200 mg PO HS 02/06/18 [History] Trihexyphenidyl [Artane] 4 mg PO TID 02/06/18 [History] Venlafaxine HCl [Effexor Xr] 37.5 mg PO DAILY 02/06/18 [History] acetaZOLAMIDE [Diamox] 500 mg PO FR 02/06/18 [History] fluPHENAZine decanoate [Prolixin] 75 mg IM Q14D 02/06/18 [History] Amoxicillin/Clavulanate [Augmentin] 875 mg PO BIDWM 6 Days #12 tablet 02/10/18 [ Rx] Lidocaine Patch [Lidoderm 5% patch] 1 each TP DAILY adh..patch 02/10/18 [Rx] Metoprolol [Lopressor] 50 mg PO BID tablet 02/10/18 [Rx] Nicotine Patch [Nicoderm] 21 mg TD DAILY patch.td24 02/10/18 [Rx] Allergies/Adverse Reactions: 3 Allergy/AdvReac Type Severity Reaction Status Date / Time bupropion AdvReac Unknown Verified 02/06/18 10:05 codeine AdvReac Unknown Verified 02/06/18 10:05 haloperidol [From Haldol] AdvReac Unknown Verified 02/06/18 10:05 hydroxyzine AdvReac Anaphylaxis Verified 02/07/18 13:53 morphine AdvReac Unknown Verified 02/06/18 10:05 tramadol AdvReac Unknown Verified 02/06/18 10:05 Varenicline [From Chantix] AdvReac Unknown Verified 02/06/18 10:05 - Respiratory Orders Oxygen / L per min Smoking Cessation: Smoking cessation has been advised. For more information, call the [place] Tobacco Quit Line at 4-739-FQFZ-NOW. - Advance Directives Code Status: Full Code - Mobility Orders Ambulate - Rehabiliation Orders Rehab Potential: Good - Diet Orders No Added Salt (WICHO), Cardiac CERTIFICATION: I certify that the transfer of the above named patient to an Extended Care Facility is necessary for the continuing treatment of the diagnosis listed. The above information is true and accurate reflection of patient's current condition. Confidential - Redisclosure prohibited without a patient's written consent.
[2018-02-10] MEDS: Nicotine 21 MG PATCH.TD24 TD SCH (09:36)
[2018-02-10] MEDS: amLODIPine 5 MG TABLET PO SCH (09:36)
[2018-02-10] MEDS ORDERED: acetaZOLAMIDE 250 MG TABLET PO SCH (13:14)
== END 2018-02-10 11:54 | disposition psychiatric hospital, planned readmission (93) | DRG 917 ==
LOC: EMEROOARM 17:07 → 2ANU 17:07 → SUATTDRO 21:08 → 2ANU 22:21
PROVIDERS: ADMIT Internal Medicine; ATTEND Internal Medicine